=== PATIENT | male | born 1990 | race Caucasian/White ===

== ENCOUNTER 2016-08-06 18:10 | Emergency (ER) | payer BC ==
[2016-08-06] MEDS ORDERED: SODIUM CHLORIDE 0.9% 1,000 ML IV STA (18:36)
[2016-08-06] MEDS ORDERED: KETOROLAC 30 MG/ML 1 ML VIAL IVP STA (18:36)
--- NOTE | 2016-08-06 18:39 | ED ---
Abdominal Pain HPI - General Chief Complaint: Abdominal Pain Stated Complaint: upper side pain Time Seen by Provider: 08/06/16 18:29 Source: patient, RN notes reviewed Mode of arrival: ambulatory Limitations: no limitations - History of Present Illness Initial Comments: 26-year-old male presents to the emergency department with a chief complaint of left upper quadrant abdominal pain. Patient states that he is having this pain since . Patient states any movement make the pain worse. Patient states he rested just has a dull type pain. Patient states that the nausea without vomiting. Patient denies any history of the pain in the past. Patient denies any injury. Patient states that he was concerned due to his continued pains without that he should be evaluated.Patient denies any recent fever, chills, shortness of breath, chest pain, back pain, nausea vomiting, numbness or tingling, dysuria or hematuria, constipation or diarrhea, headaches or visual changes, or any other current symptoms. - Related Data Home Medications Medication Instructions Recorded Confirmed Dextroamphetamine/Amphetamine 30 mg PO BID 11/10/14 08/06/16 [Adderall] buPROPion XL [Wellbutrin Xl] 150 mg PO DAILY 08/06/16 08/06/16 Allergies Allergy/AdvReac Type Severity Reaction Status Date / Time No Known Allergies Allergy Verified 08/06/16 18:58 Review of Systems ROS Statement: Those systems with pertinent positive or pertinent negative responses have been documented in the HPI. ROS Other: All systems not noted in ROS Statement are negative. Past Medical History Past Medical History: No Reported History History of Any Multi-Drug Resistant Organisms: None Reported Past Surgical History: No Surgical Hx Reported Past Psychological History: No Psychological Hx Reported Smoking Status: Never smoker Past Alcohol Use History: Occasional Past Drug Use History: None Reported General Exam - General Exam Comments Initial Comments: General: The patient is awake and alert, in no distress, and does not appear acutely ill. Eye: Pupils are equal, round/ extra-ocular movements are intact; there is normal conjunctiva bilaterally. No signs of icterus. Ears, nose, mouth and throat: There are moist mucous membranes/ Neck: The neck is supple, there is no tenderness/ Cardiovascular: There is a regular rate and rhythm. No murmur, rub or gallop is appreciated. Respiratory: Lungs are clear to auscultation, respirations are non-labored, breath sounds are equal. No wheezes, stridor, rales, or rhonchi. Gastrointestinal: Soft, non-distended, non-tender abdomen without masses or organomegaly noted. There is no rebound or guarding present. No CVA tenderness. Bowel sounds are unremarkable. Back: There is no tenderness to palpation in the midline. There is no obvious deformity. No rashes noted. Musculoskeletal: Normal ROM, no tenderness, There is no pedal edema. There is no calf tenderness or swelling. Sensation intact. Pulses equal bilaterally 2+. Neurological: CN II-XII intact, There are no obvious motor or sensory deficits. Coordination appears grossly intact. Speech is normal. Skin: Skin is warm and dry and no rashes or lesions are noted. Psychiatric: Cooperative, appropriate mood & affect, normal judgment. Limitations: no limitations Course Vital Signs 08/06/16 18:20 Temperature 97.7 F Pulse Rate 73 Respiratory 20 Rate Blood Pressure 142/67 O2 Sat by Pulse 98 Oximetry - Reevaluation(s) Reevaluation #1: 08/06/16 20:18 Patient's abdomen continues to be soft and nontender. Medical Decision Making - Medical Decision Making 26-year-old male presents emergency Department chief complaint of left upper quadrant abdominal pain. This lab work was reviewed and does not show any acute process. At this time we did discuss other etiologies for this. Discussed watch for parameters. We discussed return parameters and follow-up. We discussed all the patient's his questions. He stated he understood and agreed with plan. Certainly will be discharged home. - Lab Data Result diagrams: 08/06/16 19:23 08/06/16 19:23 Lab Results 08/06/16 08/06/16 08/06/16 Range/Units 19:23 19:23 20:01 WBC 9.6 (3.8-10.6) k/uL RBC 5.29 (4.30-5.90) m/uL Hgb 15.5 (13.0-17.5) gm/dL Hct 43.0 (39.0-53.0) % MCV 81.2 (80.0-100.0) fL MCH 29.2 (25.0-35.0) pg MCHC 35.9 (31.0-37.0) g/dL RDW 13.2 (11.5-15.5) % Plt Count 228 (150-450) k/uL Neutrophils % 71 % Lymphocytes % 18 % Monocytes % 6 % Eosinophils % 2 % Basophils % 1 % Neutrophils # 6.8 (1.3-7.7) k/uL Lymphocytes # 1.8 (1.0-4.8) k/uL Monocytes # 0.6 (0-1.0) k/uL Eosinophils # 0.2 (0-0.7) k/uL Basophils # 0.1 (0-0.2) k/uL Sodium 140 (137-145) mmol/L Potassium 4.1 (3.5-5.1) mmol/L Chloride 104 (98-107) mmol/L Carbon Dioxide 26 (22-30) mmol/L Anion Gap 10 mmol/L BUN 13 (9-20) mg/dL Creatinine 0.78 (0.66-1.25) mg/dL Est GFR (MDRD) Af Amer >60 (>60 ml/min/1.73 sqM) Est GFR (MDRD) Non-Af >60 (>60 ml/min/1.73 sqM) Glucose 93 (74-99) mg/dL Calcium 9.5 (8.4-10.2) mg/dL Total Bilirubin 0.6 (0.2-1.3) mg/dL AST 26 (17-59) U/L ALT 43 (21-72) U/L Alkaline Phosphatase 60 (38-126) U/L Total Protein 7.2 (6.3-8.2) g/dL Albumin 4.1 (3.5-5.0) g/dL Amylase 56 (30-110) U/L Lipase 69 (23-300) U/L Urine Color Yellow Urine Appearance Clear (Clear) Urine pH 5.5 (5.0-8.0) Ur Specific [place] 1.024 (1.001-1.035) Urine Protein Negative (Negative) Urine Glucose (UA) Negative (Negative) Urine Ketones Negative (Negative) Urine Blood Negative (Negative) Urine Nitrite Negative (Negative) Urine Bilirubin Negative (Negative) Urine Urobilinogen <2.0 (<2.0) mg/dL Ur Leukocyte Esterase Negative (Negative) - Radiology Data Radiology results: report reviewed, image reviewed Disposition Clinical Impression: Abdominal pain, left upper quadrant Disposition: HOME SELF-CARE Condition: Stable Instructions: Abdominal Pain (ED) Additional Instructions: Please use medication as discussed. Please follow up with family doctor if symptoms have not improved over the next two days. Please return to the emergency room if your symptoms increase or worsen or for any other concerns. Referrals: Marium Agarwal MD [Primary Care Provider] - 1-2 days Time of Disposition: 20:18
--- NOTE | 2016-08-06 19:09 | XR ---
EXAMINATION TYPE: XR abdomen 2V DATE OF EXAM: 08/06/2016 6:46 PM COMPARISON: NONE HISTORY: Pain for a few weeks TECHNIQUE: 3 views FINDINGS: There is no sign of intestinal obstruction or pneumoperitoneum. Fecal pattern is normal. Th ere is no sign of a mass. There are no pathologic calcifications over the kidneys. IMPRESSION: Nonacute abdomen.
[2016-08-06 19:34] LABS: Basophils # (A) 0.1 k/uL (0-0.2); Basophils % (A) 1 %; CH 29.6; CHCM 36.5; Eosinophils # (A) 0.2 k/uL (0-0.7); Eosinophils % (A) 2 %; HDW 3.01; HGB 15.5 gm/dL (13.0-17.5); Luc # (Auto) 0.19; Luc % (Auto) 2; Lymphocytes # (A) 1.8 k/uL (1.0-4.8); Lymphocytes % (A) 18 %; MCH 29.2 pg (25.0-35.0); MCHC 35.9 g/dL (31.0-37.0); MCV 81.2 fL (80.0-100.0); Mean Platelet Volume 7.5; Monocytes # (A) 0.6 k/uL (0-1.0); Monocytes % (A) 6 %; Neutrophils # (A) 6.8 k/uL (1.3-7.7); Neutrophils % (A) 71 %; RBC 5.29 m/uL (4.30-5.90); RDW 13.2 % (11.5-15.5); WBC 9.6 k/uL (3.8-10.6); WBC (Perox) 9.16
[2016-08-06 19:44] LABS: ALT 43 U/L (21-72); AST 26 U/L (17-59); Alkaline Phosphatase 60 U/L (38-126); Amylase 56 U/L (30-110); Anion Gap 10 mmol/L; Blood Urea Nitrogen 13 mg/dL (9-20); Calcium 9.5 mg/dL (8.4-10.2); Carbon Dioxide 26 mmol/L (22-30); Chloride 104 mmol/L (98-107); Glucose 93 mg/dL (74-99); Non-African American GFR(MDRD) >60 (>60 ml/min/1.73 sqM); Potassium 4.1 mmol/L (3.5-5.1); Sodium 140 mmol/L (137-145); Total Bilirubin 0.6 mg/dL (0.2-1.3); Total Protein 7.2 g/dL (6.3-8.2)
[2016-08-06 20:08] LABS: Appearance,Urine Clear (Clear); Bilirubin,Urine Negative (Negative); Glucose,Urine (UA) Negative (Negative); Ketones,Urine Negative (Negative); Leukocyte Esterase,Urine Negative (Negative); Nitrite,Urine Negative (Negative); PH, Urine 5.5 (5.0-8.0); Protein,Urine Negative (Negative); Specific Gravity,Urine 1.024 (1.001-1.035); UA Billing (MACRO vs. MICRO) CHEM; Urobilinogen,Urine <2.0 mg/dL (<2.0)
[2016-08-06 21:52] VITALS: BP 138/78; PULSE 84; RESP 18; TEMP 97.9
== END 2016-08-06 21:52 | disposition home or self-care (01) ==
LOC: EC 18:10
DX: R10.12 Left upper quadrant pain (principal); R11.0 Nausea; Z79.899 Other long term (current) drug therapy
CPT/HCPCS: 36415; 80053; 82150; 83690; 85025; 81003; 74020; 99284; 96374; 96361 ×2; J1885

== ENCOUNTER 2018-01-07 13:02 | Emergency (ER) | payer BC ==
[2018-01-07] MEDS ORDERED: MAG HYDROX/AL HYDROX/SIMETH 30 ML, HYOSCYAMINE ELIXIR 10 ML, CIMETIDINE HCL 300 MG, LID... PO STA ×4 (14:11)
[2018-01-07] MEDS ORDERED: KETOROLAC 30 MG/ML 1 ML VIAL IVP STA (14:11)
[2018-01-07 14:38] LABS: ALT 58 U/L (21-72); AST 35 U/L (17-59); Albumin 3.6 g/dL (3.5-5.0); Alkaline Phosphatase 46 U/L (38-126); Amylase 44 U/L (30-110); Anion Gap 9 mmol/L; Blood Urea Nitrogen 12 mg/dL (9-20); Calcium 8.7 mg/dL (8.4-10.2); Carbon Dioxide 25 mmol/L (22-30); Chloride 108 mmol/L (98-107); Glucose 94 mg/dL (74-99); Lipase 41 U/L (23-300); Potassium 4.2 mmol/L (3.5-5.1); Sodium 142 mmol/L (137-145); Total Bilirubin 0.5 mg/dL (0.2-1.3); Total Protein 6.7 g/dL (6.3-8.2)
[2018-01-07 14:38] LABS: Appearance,Urine Clear (Clear); Bilirubin,Urine Negative (Negative); Blood,Urine Negative (Negative); Color,Urine Yellow; Glucose,Urine (UA) Negative (Negative); Ketones,Urine Negative (Negative); Leukocyte Esterase,Urine Negative (Negative); Nitrite,Urine Negative (Negative); PH, Urine 5.5 (5.0-8.0); Protein,Urine Trace (Negative); Specific Gravity,Urine 1.026 (1.001-1.035); Urobilinogen,Urine <2.0 mg/dL (<2.0)
[2018-01-07 14:40] LABS: Basophils # (A) 0.1 k/uL (0-0.2); Basophils % (A) 1 %; Eosinophils # (A) 0.2 k/uL (0-0.7); Eosinophils % (A) 2 %; HCT 43.7 % (39.0-53.0); HGB 14.5 gm/dL (13.0-17.5); Lymphocytes # (A) 1.6 k/uL (1.0-4.8); Lymphocytes % (A) 19 %; MCH 27.5 pg (25.0-35.0); MCHC 33.3 g/dL (31.0-37.0); MCV 82.8 fL (80.0-100.0); Mean Platelet Volume 7.2; Monocytes # (A) 0.6 k/uL (0-1.0); Monocytes % (A) 7 %; Neutrophils # (A) 5.6 k/uL (1.3-7.7); Neutrophils % (A) 69 %; Platelet Count 235 k/uL (150-450); RBC 5.27 m/uL (4.30-5.90); RDW 13.5 % (11.5-15.5)
--- NOTE | 2018-01-07 15:35 | ED ---
General Adult HPI - General Chief complaint: Abdominal Pain Stated complaint: ABDOMINAL PAIN Time Seen by Provider: 01/07/18 13:59 Source: patient, RN notes reviewed Mode of arrival: ambulatory Limitations: no limitations - History of Present Illness Initial comments: 27-year-old male presents to the emergency department for a chief complaint of epigastric pain 4 days. Patient states the pain is constant. He describes as a sharp pain in his upper abdomen. Patient states the pain is worsened when he sits up and crunches. Patient denies any lower abdominal pain. Patient denies any nausea or vomiting. Patient does admit to diarrhea over the past few days. Patient states he is able to eat and drink without difficulty. Patient denies any lower abdominal pain. Patient denies any fevers or chills at home.Patient has no other complaints at this time including shortness of breath , chest pain, nausea or vomiting, headache, or visual changes. - Related Data Home Medications Medication Instructions Recorded Confirmed Dextroamphetamine/Amphetamine 30 mg PO BID 11/10/14 01/07/18 [Adderall] Previous Rx's Medication Instructions Recorded Pantoprazole Sodium [Protonix] 40 mg PO DAILY 14 Days tablet. 01/07/18 Allergies Allergy/AdvReac Type Severity Reaction Status Date / Time No Known Allergies Allergy Verified 01/07/18 14:23 Review of Systems ROS Statement: Those systems with pertinent positive or pertinent negative responses have been documented in the HPI. ROS Other: All systems not noted in ROS Statement are negative. Past Medical History Past Medical History: No Reported History History of Any Multi-Drug Resistant Organisms: None Reported Past Surgical History: No Surgical Hx Reported Past Psychological History: No Psychological Hx Reported Smoking Status: Never smoker Past Alcohol Use History: Occasional Past Drug Use History: None Reported General Exam Limitations: no limitations General appearance: alert, in no apparent distress Head exam: Present: atraumatic, normocephalic, normal inspection Eye exam: Present: normal appearance. Absent: scleral icterus, conjunctival injection ENT exam: Present: normal exam, mucous membranes moist Neck exam: Present: normal inspection, full ROM. Absent: tenderness, meningismus, lymphadenopathy Respiratory exam: Present: normal lung sounds bilaterally. Absent: respiratory distress, wheezes, rales, rhonchi, stridor Cardiovascular Exam: Present: regular rate, normal rhythm, normal heart sounds. Absent: systolic murmur, diastolic murmur, rubs, gallop, clicks GI/Abdominal exam: Present: soft, tenderness (Epigastric tenderness. Minimal right upper quadrant and left upper quadrant tenderness. No right lower quadrant or left lower quadrant tenderness. Pain is worse when pressing rather than releasing pressure.), normal bowel sounds, other (Negative Esqueda sign. Negative obturator and iliopsoas signs). Absent: distended, guarding, rebound, rigid Back exam: Absent: CVA tenderness (R), CVA tenderness (L) Neurological exam: Present: alert, oriented X3, CN II-XII intact Psychiatric exam: Present: normal affect, normal mood Course Vital Signs 01/07/18 01/07/18 13:28 15:46 Temperature 98.2 F 98.7 F Pulse Rate 60 100 Respiratory 20 18 Rate Blood Pressure 146/83 139/74 O2 Sat by Pulse 98 98 Oximetry Medical Decision Making - Medical Decision Making 27-year-old male presents to the emergency department for a chief complaint of epigastric pain 4 days. Patient does have a history of GERD. Patient states the pain is worsened crutches. He admits to diarrhea but denies any nausea or vomiting. Patient is drinking water in the emergency department and able to tolerate oral solids and liquids without any difficulty. No fevers or chills at home. Vitals within normal limits here. On exam patient has epigastric tenderness. There is mild right and left upper quadrant tenderness. Negative Esqueda sign. No right or left lower quadrant tenderness. Negative obturator and iliopsoas signs. CBC and CMP unremarkable. Urine shows no evidence of infection. KUB shows no evident bowel obstruction or pneumoperitoneum. Nonobstructive bowel gas pattern. Patient is feeling much better after receiving GI cocktail and Toradol. Discussed following up with GI for possible scope and to take Protonix. He will also follow-up with primary care in the next day or 2. He will return to the emergency department if he has any worsening symptoms that she is well aware of. - Lab Data Result diagrams: 01/07/18 14:15 01/07/18 14:15 Lab Results 01/07/18 01/07/18 01/07/18 Range/Units 14:15 14:15 14:29 WBC 8.0 (3.8-10.6) k/uL RBC 5.27 (4.30-5.90) m/uL Hgb 14.5 (13.0-17.5) gm/dL Hct 43.7 (39.0-53.0) % MCV 82.8 (80.0-100.0) fL MCH 27.5 (25.0-35.0) pg MCHC 33.3 (31.0-37.0) g/dL RDW 13.5 (11.5-15.5) % Plt Count 235 (150-450) k/uL Neutrophils % 69 % Lymphocytes % 19 % Monocytes % 7 % Eosinophils % 2 % Basophils % 1 % Neutrophils # 5.6 (1.3-7.7) k/uL Lymphocytes # 1.6 (1.0-4.8) k/uL Monocytes # 0.6 (0-1.0) k/uL Eosinophils # 0.2 (0-0.7) k/uL Basophils # 0.1 (0-0.2) k/uL Sodium 142 (137-145) mmol/L Potassium 4.2 (3.5-5.1) mmol/L Chloride 108 H (98-107) mmol/L Carbon Dioxide 25 (22-30) mmol/L Anion Gap 9 mmol/L BUN 12 (9-20) mg/dL Creatinine 1.11 (0.66-1.25) mg/dL Est GFR (CKD-EPI)AfAm >90 (>60 ml/min/1.73 sqM) Est GFR (CKD-EPI)NonAf >90 (>60 ml/min/1.73 sqM) Glucose 94 (74-99) mg/dL Calcium 8.7 (8.4-10.2) mg/dL Total Bilirubin 0.5 (0.2-1.3) mg/dL AST 35 (17-59) U/L ALT 58 (21-72) U/L Alkaline Phosphatase 46 (38-126) U/L Total Protein 6.7 (6.3-8.2) g/dL Albumin 3.6 (3.5-5.0) g/dL Amylase 44 (30-110) U/L Lipase 41 (23-300) U/L Urine Color Yellow Urine Appearance Clear (Clear) Urine pH 5.5 (5.0-8.0) Ur Specific [place] 1.026 (1.001-1.035) Urine Protein Trace H (Negative) Urine Glucose (UA) Negative (Negative) Urine Ketones Negative (Negative) Urine Blood Negative (Negative) Urine Nitrite Negative (Negative) Urine Bilirubin Negative (Negative) Urine Urobilinogen <2.0 (<2.0) mg/dL Ur Leukocyte Esterase Negative (Negative) Disposition Clinical Impression: Abdominal pain Disposition: HOME SELF-CARE Condition: Good Instructions: Gastritis (ED), Abdominal Pain (ED) Additional Instructions: Please follow up with GI and primary care. Please return to the emergency department if you have any worsening symptoms. Prescriptions: Pantoprazole Sodium [Protonix] 40 mg PO DAILY 14 Days tablet.dr Is patient prescribed a controlled substance at d/c from ED?: No Referrals: Marium Agarwal MD [Primary Care Provider] - 1-2 days Angela Hines MD [STAFF PHYSICIAN] - 1-2 days Time of Disposition: 16:10
--- NOTE | 2018-01-07 16:00 | XR ---
Abdomen HISTORY: Pain Frontal view of the abdomen on 2 images Lung bases are clear. There is no evident bowel obstruction or pneumoperitoneum. No pathologic calcif ication seen. There is a spinal curvature. IMPRESSION: Nonobstructive bowel gas pattern.
[2018-01-07 16:29] VITALS: BP 129/67; PULSE 54; RESP 17; TEMP 98.3
== END 2018-01-07 16:32 | disposition home or self-care (01) ==
LOC: EC 13:02
DX: R10.13 Epigastric pain (principal); R10.11 Right upper quadrant pain; R10.12 Left upper quadrant pain; R19.7 Diarrhea, unspecified; K21.9 Gastro-esophageal reflux disease without esophagitis; Z79.899 Other long term (current) drug therapy
CPT/HCPCS: 99284; 96374; 36415; 80053; 82150; 83690; 85025; 81003; 74018; J1885

== ENCOUNTER 2019-10-24 21:57 | Emergency (ER) | payer BC, OTHER ==
[2019-10-24] MEDS ORDERED: SODIUM CHLORIDE 0.9% 1,000 ML IV STA (22:04)
[2019-10-24] MEDS ORDERED: fentaNYL (PF) 50 MCG/ML 2 ML AMP IVP STA (22:06)
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
[2019-10-24 22:09] VITALS: BP 140/87; PULSE 96; TEMP 98.7
[2019-10-24 22:11] LABS: Glucose,Whole Blood 136 mg/dL (75-99)
[2019-10-24 22:22] LABS: Basophils # (A) 0.1 k/uL (0-0.2); Basophils % (A) 1 %; Eosinophils # (A) 0.2 k/uL (0-0.7); Eosinophils % (A) 2 %; HCT 44.4 % (39.0-53.0); HGB 15.3 gm/dL (13.0-17.5); Lymphocytes # (A) 2.8 k/uL (1.0-4.8); Lymphocytes % (A) 31 %; MCH 28.6 pg (25.0-35.0); MCHC 34.4 g/dL (31.0-37.0); MCV 83.1 fL (80.0-100.0); Mean Platelet Volume 7.3; Monocytes # (A) 0.5 k/uL (0-1.0); Monocytes % (A) 5 %; Neutrophils # (A) 5.5 k/uL (1.3-7.7); Neutrophils % (A) 59 %; Platelet Count 248 k/uL (150-450); RBC 5.35 m/uL (4.30-5.90); RDW 13.2 % (11.5-15.5); WBC 9.2 k/uL (3.8-10.6)
[2019-10-24 22:30] LABS: Partial Thromboplastin Time 22.8 sec (22.0-30.0)
[2019-10-24 22:31] LABS: ALT 49 U/L (4-49); AST 47 U/L (17-59); African American GFR (CKD) >90 (>60 ml/min/1.73 sqM); Albumin 4.3 g/dL (3.5-5.0); Alcohol <10 mg/dL; Alkaline Phosphatase 63 U/L (38-126); Anion Gap 10 mmol/L; Blood Urea Nitrogen 15 mg/dL (9-20); Calcium 9.3 mg/dL (8.4-10.2); Carbon Dioxide 23 mmol/L (22-30); Chloride 107 mmol/L (98-107); Glucose 130 mg/dL (74-99); Non-African American GFR(CKD) >90 (>60 ml/min/1.73 sqM); Sodium 140 mmol/L (137-145); Total Bilirubin 0.7 mg/dL (0.2-1.3); Total Protein 7.5 g/dL (6.3-8.2)
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
[2019-10-24] MEDS ORDERED: MORPHINE SULFATE 4 MG/ML SYRINGE IVP STA (23:25)
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
[2019-10-25 00:36] VITALS: RESP 20
[2019-10-25] MEDS ORDERED: ACET/COD 300 MG/30 MG STARTER PACK 6 TAB BTL PO STA (00:48)
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
== END 2019-10-25 02:00 | disposition home or self-care (01) ==
LOC: EC 21:57
DX: S40.012A Contusion of left shoulder, initial encounter (principal); R07.1 Chest pain on breathing; R00.1 Bradycardia, unspecified; V86.55XA Driver of 3- or 4- wheeled all-terrain vehicle (ATV) injured in nontraffic accident, initial encounter; Y92.410 Unspecified street and highway as the place of occurrence of the external cause
CPT/HCPCS: 36415; 93005; 86900; 86901; 80053; 84484; 85025; 85610; 85730; 86850; 80320; 72170; 73030; 73000; 71045; 72125; 70450; 71260; 74177; 99284; 96374; 96375; 96361 ×2; J2270; J3010; Q9967

== ENCOUNTER → 2020-08-17 | Outpatient (CLI) | payer OTHER | END | disposition home or self-care (01) | LOC: LABWHC1 15:40 | PROVIDERS: ATTEND Family Medicine | DX: Z20.822 Contact with and (suspected) exposure to COVID-19 (principal) | CPT/HCPCS: U0003; C9803 ==

== ENCOUNTER 2022-12-17 07:34 | Emergency (ER) | payer OTHER ==
[2022-12-17] MEDS ORDERED: ONDANSETRON 4 MG/2 ML VIAL IVP STA (07:51)
[2022-12-17] MEDS ORDERED: SODIUM CHLORIDE 0.9% 2,000 ML IV STA (07:51)
--- NOTE | 2022-12-17 07:53 | ED ---
Abdominal Pain HPI - General Chief Complaint: Abdominal Pain Stated Complaint: Abd Pain, N/V Time Seen by Provider: 12/17/22 07:44 Source: patient, RN notes reviewed Mode of arrival: ambulatory Limitations: no limitations - History of Present Illness Initial Comments: This a 32-year-old male presents emergency department to complaint lower abdominal pain. Patient states started on Saturday has worsened. He states it does wax and wane but never resolves. Patient does admit to some nausea and vomiting. Patient denies any dysuria hematuria no history kidney stones. He states she's had no prior abdominal surgeries. Patient does states pain is wor se in lower to right-sided his abdomen. He does have mild diarrhea. Denies melanotic stools. - Related Data Home Medications Medication Instructions Recorded Confirmed Dextroamphetamine/Amphetamine 30 mg PO BID 11/10/14 01/07/18 [Adderall] Previous Rx's Medication Instructions Recorded Pantoprazole Sodium [Protonix] 40 mg PO DAILY 14 Days tablet. 01/07/18 methocarbamoL [Robaxin-750] 750 mg PO TID PRN #24 tablet 10/25/19 Amoxic-Pot Clav 875-125Mg 1 tab PO Q12HR #20 tab 12/17/22 [Augmentin 875-125] Ondansetron Odt [Zofran Odt] 4 mg PO Q8HR PRN #10 tab 12/17/22 Allergies Allergy/AdvReac Type Severity Reaction Status Date / Time No Known Allergies Allergy Verified 12/17/22 07:42 Review of Systems ROS Statement: Those systems with pertinent positive or pertinent negative responses have been documented in the HPI. ROS Other: All systems not noted in ROS Statement are negative. Past Medical History Past Medical History: No Reported History History of Any Multi-Drug Resistant Organisms: None Reported Past Surgical History: No Surgical Hx Reported Past Psychological History: No Psychological Hx Reported Smoking Status: Never smoker Past Alcohol Use History: Occasional Past Drug Use History: None Reported General Exam Limitations: no limitations General appearance: alert, in no apparent distress Head exam: Present: atraumatic, normocephalic, normal inspection ENT exam: Present: normal exam, mucous membranes moist Neck exam: Present: normal inspection, full ROM. Absent: tenderness, meningismus, lymphadenopathy Respiratory exam: Present: normal lung sounds bilaterally. Absent: respiratory distress, wheezes, rales, rhonchi, stridor Cardiovascular Exam: Present: regular rate, normal rhythm, normal heart sounds. Absent: systolic murmur, diastolic murmur, rubs, gallop, clicks GI/Abdominal exam: Present: soft, tenderness, normal bowel sounds. Absent: distended, guarding, rebound, rigid Back exam: Absent: CVA tenderness (R), CVA tenderness (L) Neurological exam: Present: alert Course Vital Signs 12/17/22 12/17/22 07:40 09:21 Temperature 98.8 F Pulse Rate 78 71 Respiratory 18 20 Rate Blood Pressure 159/90 131/86 O2 Sat by Pulse 98 96 Oximetry Medical Decision Making - Medical Decision Making Was pt. sent in by a medical professional or institution (, PA, MARINE STEAM [employer]TER, urgent care, hospital, or [facility]...) When possible be specific @ -No Did you speak to anyone other than the patient for history (EMS, parent, family, police, friend...)? What history was obtained from this source @ -No Did you review nursing and triage notes (agree or disagree)? Why? @ -I reviewed and agree with nursing and triage notes Were old charts reviewed (outside hosp., previous admission, EMS record, old EKG, old radiological studies, urgent care reports/EKG's, [facility] records)? Report findings @ -No old charts were reviewed Differential Diagnosis (chest pain, altered mental status, abdominal pain women, abdominal pain men, vaginal bleeding, weakness, fever, dyspnea, syncope, headache, dizziness, GI bleed, back pain, seizure, CVA, palpatations, mental health, musculoskeletal)? @ -nDifferential Abdominal Pain Men: Appendicitis, cholecystitis, diverticulosis, ischemic bowel, pancreatitis, hepatitis, UTI, gastroenteritis, AAA, incarcerated hernia, bowel obstruction, constipation, inflammatory bowel, hepatitis, peptic ulcer disease, splenic infarction, perforated viscus, testicular torsion, this is not meant to be an all-inclusive listable EKG interpreted by me (3pts min.). @ -None X-rays interpreted by me (1pt min.). @ -None done CT interpreted by me (1pt min.). @ -CT the abdomen and pelvis shows evidence of acute infectious colitis. Appendix is normal no other acute findings U/S interpreted by me (1pt. min.). @ -None done What testing was considered but not performed or refused? (CT, X-rays, U/S, labs)? Why? @ -None What meds were considered but not given or refused? Why? @ -None Did you discuss the management of the patient with other professionals (professionals i.e. , PA, MARINE [employer]TER, lab, RT, psych nurse, social welfare research worker, motor operator, teacher, intelligence support officer, shelter case manager)? Give summary @ -No Was smoking cessation discussed for >3mins.? @ -No Was critical care preformed (if so, how long)? @ -No Were there social determinants of health that impacted care today? How? (Homelessness, low income, unemployed, alcoholism, drug addiction, transportation, low edu. Level, literacy, decrease access to med. care, snf, rehab)? @ -No Was there de-escalation of care discussed even if they declined (Discuss DNR or withdrawal of care, Hospice)? DNR status @ -No What co-morbidities impacted this encounter? (DM, HTN, Smoking, COPD, CAD, Cancer, CVA, ARF, Chemo, Hep., AIDS, mental health diagnosis, sleep apnea, morbid obesity)? @ -None Was patient admitted / discharged? Hospital course, mention meds given and route, prescriptions, significant lab abnormalities, going to OR and other pertinent info. @ -Discharge patient lab for studies reviewed, CT shows evidence of infectious sigmoid colitis,Patient states emergency medicine for close follow-up return parameters were discussed. Undiagnosed new problem with uncertain prognosis? @ -No Drug Therapy requiring intensive monitoring for toxicity (Heparin, Nitro, Insulin, Cardizem)? @ -No Were any procedures done? @ -No Diagnosis/symptom? @ -Colitis Acute, or Chronic, or Acute on Chronic? @ -Acute Uncomplicated (without systemic symptoms) or Complicated (systemic symptoms)? @ -Uncomplicated Side effects of treatment? @ -No Exacerbation, Progression, or Severe Exacerbation? @ -No Poses a threat to life or bodily function? How? (Chest pain, [place], VA, pneumonia, PE, COPD, DKA, ARF, appy, cholecystitis, CVA, Diverticulitis, Homicidal, Suicidal, threat to staff... and all critical care pts) @ -No - Lab Data Result diagrams: 12/17/22 08:03 12/17/22 08:03 Lab Results 12/17/22 12/17/22 12/17/22 Range/Units 08:03 08:03 08:03 WBC 14.4 H (3.8-10.6) k/uL RBC 5.06 (4.30-5.90) m/uL Hgb 14.8 (13.0-17.5) gm/dL Hct 42.1 (39.0-53.0) % MCV 83.2 (80.0-100.0) fL MCH 29.2 (25.0-35.0) pg MCHC 35.2 (31.0-37.0) g/dL RDW 13.5 (11.5-15.5) % Plt Count 194 (150-450) k/uL MPV 8.3 Neutrophils % 82 % Lymphocytes % 11 % Monocytes % 5 % Eosinophils % 1 % Basophils % 0 % Neutrophils # 11.8 H (1.3-7.7) k/uL Lymphocytes # 1.5 (1.0-4.8) k/uL Monocytes # 0.8 (0-1.0) k/uL Eosinophils # 0.1 (0-0.7) k/uL Basophils # 0.1 (0-0.2) k/uL Sodium 137 (137-145) mmol/L Potassium 3.8 (3.5-5.1) mmol/L Chloride 103 (98-107) mmol/L Carbon Dioxide 26 (22-30) mmol/L Anion Gap 8 mmol/L BUN 11 (9-20) mg/dL Creatinine 0.69 (0.66-1.25) mg/dL Est GFR (CKD-EPI)AfAm >90 (>60 ml/min/1.73 sqM) Est GFR (CKD-EPI)NonAf >90 (>60 ml/min/1.73 sqM) Glucose 115 H (74-99) mg/dL Plasma Lactic Acid Bernardo (0.7-2.0) mmol/L Calcium 8.8 (8.4-10.2) mg/dL Total Bilirubin 1.0 (0.2-1.3) mg/dL AST 26 (17-59) U/L ALT 27 (4-49) U/L Alkaline Phosphatase 57 (38-126) U/L Total Protein 7.0 (6.3-8.2) g/dL Albumin 3.8 (3.5-5.0) g/dL Lipase 57 (23-300) U/L Urine Color Light Red Urine Appearance Clear (Clear) Urine pH 5.5 (5.0-8.0) Ur Specific [place] 1.028 (1.001-1.035) Urine Protein Trace H (Negative) Urine Glucose (UA) Negative (Negative) Urine Ketones Negative (Negative) Urine Blood Negative (Negative) Urine Nitrite Negative (Negative) Urine Bilirubin Negative (Negative) Urine Urobilinogen <2.0 (<2.0) mg/dL Ur Leukocyte Esterase Negative (Negative) 12/17/22 Range/Units 08:14 WBC (3.8-10.6) k/uL RBC (4.30-5.90) m/uL Hgb (13.0-17.5) gm/dL Hct (39.0-53.0) % MCV (80.0-100.0) fL MCH (25.0-35.0) pg MCHC (31.0-37.0) g/dL RDW (11.5-15.5) % Plt Count (150-450) k/uL MPV Neutrophils % % Lymphocytes % % Monocytes % % Eosinophils % % Basophils % % Neutrophils # (1.3-7.7) k/uL Lymphocytes # (1.0-4.8) k/uL Monocytes # (0-1.0) k/uL Eosinophils # (0-0.7) k/uL Basophils # (0-0.2) k/uL Sodium (137-145) mmol/L Potassium (3.5-5.1) mmol/L Chloride (98-107) mmol/L Carbon Dioxide (22-30) mmol/L Anion Gap mmol/L BUN (9-20) mg/dL Creatinine (0.66-1.25) mg/dL Est GFR (CKD-EPI)AfAm (>60 ml/min/1.73 sqM) Est GFR (CKD-EPI)NonAf (>60 ml/min/1.73 sqM) Glucose (74-99) mg/dL Plasma Lactic Acid Bernardo 1.6 (0.7-2.0) mmol/L Calcium (8.4-10.2) mg/dL Total Bilirubin (0.2-1.3) mg/dL AST (17-59) U/L ALT (4-49) U/L Alkaline Phosphatase (38-126) U/L Total Protein (6.3-8.2) g/dL Albumin (3.5-5.0) g/dL Lipase (23-300) U/L Urine Color Urine Appearance (Clear) Urine pH (5.0-8.0) Ur Specific [place] (1.001-1.035) Urine Protein (Negative) Urine Glucose (UA) (Negative) Urine Ketones (Negative) Urine Blood (Negative) Urine Nitrite (Negative) Urine Bilirubin (Negative) Urine Urobilinogen (<2.0) mg/dL Ur Leukocyte Esterase (Negative) Disposition Clinical Impression: Infectious colitis Disposition: HOME SELF-CARE Condition: Stable Instructions (If sedation given, give patient instructions): Colitis (ED) Additional Instructions: Please return to the Emergency Department if symptoms worsen or any other concerns. Prescriptions: Amoxic-Pot Clav 875-125Mg [Augmentin 875-125] 1 tab PO Q12HR #20 tab Ondansetron Odt [Zofran Odt] 4 mg PO Q8HR PRN #10 tab PRN Reason: Nausea Is patient prescribed a controlled substance at d/c from ED?: No Referrals: Marium Agarwal MD [Primary Care Provider] - 1-2 days Time of Disposition: 09:55
[2022-12-17 08:22] LABS: Basophils # (A) 0.1 k/uL (0-0.2); Basophils % (A) 0 %; Eosinophils # (A) 0.1 k/uL (0-0.7); Eosinophils % (A) 1 %; HCT 42.1 % (39.0-53.0); HGB 14.8 gm/dL (13.0-17.5); Lymphocytes # (A) 1.5 k/uL (1.0-4.8); Lymphocytes % (A) 11 %; MCH 29.2 pg (25.0-35.0); MCHC 35.2 g/dL (31.0-37.0); MCV 83.2 fL (80.0-100.0); Mean Platelet Volume 8.3; Monocytes # (A) 0.8 k/uL (0-1.0); Monocytes % (A) 5 %; Neutrophils # (A) 11.8 k/uL (1.3-7.7); Neutrophils % (A) 82 %; Platelet Count 194 k/uL (150-450); RBC 5.06 m/uL (4.30-5.90); RDW 13.5 % (11.5-15.5); WBC 14.4 k/uL (3.8-10.6)
[2022-12-17 08:23] LABS: Appearance,Urine Clear (Clear); Bilirubin,Urine Negative (Negative); Blood,Urine Negative (Negative); Color,Urine Light Red; Glucose,Urine (UA) Negative (Negative); Ketones,Urine Negative (Negative); Leukocyte Esterase,Urine Negative (Negative); Nitrite,Urine Negative (Negative); PH, Urine 5.5 (5.0-8.0); Protein,Urine Trace (Negative); Specific Gravity,Urine 1.028 (1.001-1.035); Urobilinogen,Urine <2.0 mg/dL (<2.0)
[2022-12-17 08:36] LABS: ALT 27 U/L (4-49); AST 26 U/L (17-59); African American GFR (CKD) >90 (>60 ml/min/1.73 sqM); Albumin 3.8 g/dL (3.5-5.0); Alkaline Phosphatase 57 U/L (38-126); Anion Gap 8 mmol/L; Blood Urea Nitrogen 11 mg/dL (9-20); Calcium 8.8 mg/dL (8.4-10.2); Carbon Dioxide 26 mmol/L (22-30); Chloride 103 mmol/L (98-107); Glucose 115 mg/dL (74-99); Lipase 57 U/L (23-300); Non-African American GFR(CKD) >90 (>60 ml/min/1.73 sqM); Potassium 3.8 mmol/L (3.5-5.1); Sodium 137 mmol/L (137-145)
--- NOTE | 2022-12-17 09:38 | CT ---
EXAMINATION TYPE: CT abdomen pelvis w con CT DLP: 5335 mGycm, Automated exposure control for dose reduction was used. DATE OF EXAM: 12/17/2022 9:21 AM COMPARISON: CT chest abdomen pelvis 10/24/2019. CLINICAL INDICATION:Male, 32 years old with history of abdominal pain; Lower abdominal/pelvic pain, N ausea and vomiting TECHNIQUE: Standard CT of the abdomen and pelvis following the administration of 100 cc of Isovue 3 00 IV contrast material. Coronal and sagittal reformats were performed. FINDINGS: LOWER CHEST: Unremarkable ABDOMEN LIVER: Diffusely hypoattenuating parenchyma. GALLBLADDER AND BILE DUCTS: Unremarkable. PANCREAS: Unremarkable. SPLEEN: Unremarkable. ADRENAL GLANDS: Unremarkable. KIDNEYS AND URETERS: No evidence of hydronephrosis or renal calculus. The kidneys enhance symmetrical ly. Contrast is demonstrated within both collecting systems on the delayed phase. PELVIS BLADDER: Under distended, limiting evaluation. REPRODUCTIVE: Unremarkable. ABDOMEN & PELVIS STOMACH AND BOWEL: Stomach and duodenum are unremarkable. There is circumferential wall thickening wi th surrounding fat stranding involving the sigmoid colon. Inflammatory changes extend superiorly. No definitive pericolonic abscess. The appendix is within normal limits. No evidence of bowel obstructio n. No pneumatosis. PERITONEUM: No evidence of pneumoperitoneum. Trace free fluid in the pelvis. VASCULATURE: No evidence of aortic aneurysm. MUSCULOSKELETAL: No acute osseous abnormalities LYMPH NODES: No gross evidence for lymphadenopathy. SOFT TISSUE/ABDOMINAL WALL: Small fat filled umbilical hernia. IMPRESSION: 1. Acute nonspecific sigmoid colitis likely from an infectious/pulmonary process. Trace free fluid i n the pelvis. No definitive pericolonic abscess. 2. Hepatic steatosis.
[2022-12-17 10:35] VITALS: BP 118/67; PULSE 68; RESP 18; TEMP 98.3
== END 2022-12-17 10:36 | disposition home or self-care (01) ==
LOC: EC 07:34
DX: A09 Infectious gastroenteritis and colitis, unspecified (principal)
CPT/HCPCS: 36415; 80053; 83605; 83690; 85025; 81003; 74177; 99284; 96374; 96361 ×2; J2405; Q9967

== ENCOUNTER → 2024-07-15 | Outpatient (CLI) | payer BC ==
[2024-07-15 16:24] VITALS: BP 143/81; PULSE 81; RESP 16; TEMP 97.8
--- NOTE | 2024-07-15 16:46 | P.HPBAR ---
Bariatric H&P - History & Physicial H&P Date: 07/15/24 History & Physicial: Visit/CC: new Patient initial contact: Initial weight: 198.673 kg Initial weight in pounds: 438.00 Height: 5 ft 8.5 in Initial BMI: 65.6 Last weight: Current weight: 198.673 kg Current weight in pounds: Current BMI: [place] body weight (based on NIH guidelines): 71.36 kg Excess body weight loss: The patient is a 34 year-old M who presents for Bariatric Assessment. He has already lost 10 pounds in 2 weeks. Needs labs. He has sleep apnea. Brought and 2 kids. Has back, no hip, left knee, No ankle. Everyone in family. NO weigth loss surgery. Sleep apnea assessment. Past Medical History Past Medical History: No Reported History History of Any Multi-Drug Resistant Organisms: None Reported Past Surgical History: No Surgical Hx Reported Past Psychological History: ADD/ADHD Smoking Status: Never smoker Past Alcohol Use History: Occasional Past Drug Use History: None Reported - Past Family History Mother Family Medical History: Hypertension Surgical - Exam Vital Signs Temp Pulse Resp BP 97.8 F 81 16 143/81 07/15/24 16:11 07/15/24 16:11 07/15/24 16:11 07/15/24 16:11 Bariatric Checklist Checklist: Plan: Checklist: EGD: 1. Hiatal hernia: 2. H. Pylori: HgbA1c: Vitamin D: Smoking: Never smoker Primary care physician referral: Eden Agarwal Psychiatry clearance: Cardiology clearance: Sleep study: Diet journal: VTE risk score: VTE risk level: Rehab needs at discharge:
== END ==
LOC: BARWHC3 15:48
PROVIDERS: ATTEND Surgery Plastic and Reconstructive Surgery
DX: E66.01 Morbid (severe) obesity due to excess calories (principal); Z68.44 Body mass index [BMI] 60.0-69.9, adult
CPT/HCPCS: 99211

== ENCOUNTER → 2024-07-16 | Outpatient (CLI) | payer BC ==
[2024-07-16 17:04] LABS: INR 0.9 (<1.2); Partial Thromboplastin Time 25.8 sec (22.0-30.0); Prothrombin Time 10.5 sec (10.0-12.5)
[2024-07-16 18:36] LABS: HCT 44.7 % (39.6-50.0); HGB 15.3 g/dL (13.0-17.0); MCH 28.7 pg (27.0-32.0); MCHC 34.2 g/dL (32.0-37.0); MCV 83.7 FL (80.0-97.0); Mean Platelet Volume 10.1 FL (9.5-12.2); NRBC Per 100 WBC 0 X 10*3/uL (0.00-0.01); Platelet Count 244 X 10*3/uL (140-440); RBC 5.34 X 10*6/uL (4.40-5.60); RDW 13.2 % (11.5-14.5); WBC 8.31 X 10*3/uL (4.50-10.00)
[2024-07-16 19:33] LABS: % Iron Saturation 14.29 (15.00-50.00); ALT 39 U/L (10-49); AST 28 U/L (14-35); Albumin 4.2 g/dL (3.8-4.9); Albumin/Globulin Ratio 1.56 Ratio (1.60-3.17); Alkaline Phosphatase 70 U/L (41-126); BUN/Creat Ratio 20.88 Ratio (12.00-20.00); Blood Urea Nitrogen 16.7 mg/dL (9.0-27.0); Calcium 9.4 mg/dL (8.7-10.3); Carbon Dioxide 24.6 mmol/L (21.6-31.8); Chloride 105 mmol/L (96-109); Chol/HDL Ratio 3.01 Ratio; Globulin 2.7 g/dL (1.6-3.3); Glucose 105 mg/dL (70-110); Iron 52 UG/DL (65-175); LDL Cholesterol,Calculated 62.8 mg/dL (0.0-131.0); Magnesium 2.1 mg/dL (1.5-2.4); Phosphorus 3.5 mg/dL (2.4-5.1); Potassium 4.1 mmol/L (3.5-5.5); Sodium 141 mmol/L (135-145); Total Bilirubin 0.3 mg/dL (0.3-1.2); Total Iron Binding Capacity 364 UG/DL (228-460); Total Protein 6.9 g/dL (6.2-8.2); VLDL Calculation 17.96 mg/dL (5.00-40.00)
[2024-07-16 21:14] LABS: Prealbumin 22.6 mg/dL (18.0-42.0)
[2024-07-17 03:19] LABS: Urine Alcohol Negative (Negative); Urine Barbiturate Negative (Negative); Urine Cocaine Negative (Negative); Urine Methadone Negative (Negative); Urine Opiates Negative (Negative); Urine Phencyclidine Negative (Negative)
[2024-07-17 11:12] LABS: Zinc, Serum 77 ug/dL (60-130)
== END | disposition home or self-care (01) ==
LOC: LABWHC1 15:38
PROVIDERS: ATTEND Surgery Plastic and Reconstructive Surgery
DX: E55.9 Vitamin D deficiency, unspecified (principal); E89.1 Postprocedural hypoinsulinemia; E66.01 Morbid (severe) obesity due to excess calories; E44.0 Moderate protein-calorie malnutrition; E45 Retarded development following protein-calorie malnutrition; K74.1 Hepatic sclerosis; D50.8 Other iron deficiency anemias; D50.9 Iron deficiency anemia, unspecified; N19 Unspecified kidney failure; T56.894A Toxic effect of other metals, undetermined, initial encounter; K50.90 Crohn's disease, unspecified, without complications; Z68.33 Body mass index [BMI] 33.0-33.9, adult
CPT/HCPCS: 36415; 80053; 80061; 80306; 80323; 82306; 82525; 82607; 82728; 82746; 83036; 83540; 83550; 83735; 83970; 84100; 84134; 84255; 84425; 84443; 84590; 84630; 85027; 85610; 85730; 93005

== ENCOUNTER → 2024-08-17 | Day surgery (SDC) | payer BC ==
[~2024-08-17] MED LIST: LIDOCAINE 1% (10MG/ML) FOR IV START INTRADERMA PRN; LIDOCAINE 2% (PF) 20 MG/ML 5 ML VIAL ONE; PROPOFOL 10 MG/ML 20 ML VIAL IV ONE; fentaNYL (PF) 50 MCG/ML 2 ML AMP ONE
[2024-08-17] MEDS: LACTATED RINGERS 1,000 ML IV ONE (07:26)
[2024-08-17 07:42] VITALS: TEMP 98
[2024-08-17] MEDS: LACTATED RINGERS 1,000 ML IV SCH (07:43)
--- NOTE | 2024-08-17 08:15 | P.GSHP ---
History of Present Illness H&P Date: 08/17/24 CHIEF COMPLAINT: GERD HISTORY OF PRESENT ILLNESS: The patient is a 34-year-old male who presents reports gastroesophageal reflux disease. Upper endoscopy was offered for further evaluation and management. PAST MEDICAL HISTORY: Please see list. PAST SURGICAL HISTORY: Please see list. MEDICATIONS: Please see list. ALLERGIES: Please see list. SOCIAL HISTORY: No illicit drug use FAMILY HISTORY: No reports of Crohn disease or ulcerative colitis. REVIEW OF ORGAN SYSTEMS: CONSTITUTIONAL: No reports of fevers or chills. GI: Denies any blood in stools or constipation. PHYSICAL EXAM: VITAL SIGNS: Stable GENERAL: Well-developed and pleasant in no acute distress. HEENT: No scleral icterus. Extraocular movements grossly intact. Moist buccal mucosa. NECK: Supple without lymphadenopathy. CHEST: Unlabored respirations. Equal bilateral excursions. CARDIOVASCULAR: Regular rate and rhythm. Distal 2+ pulses. ABDOMEN: Soft, nondistended. MUSCULOSKELETAL: No clubbing, cyanosis, or edema. ASSESSMENT: 1. Gastroesophageal reflux disease PLAN: 1. Recommend proceeding with an upper endoscopy Past Medical History Past Medical History: No Reported History Additional Past Medical History / Comment(s): pre bariatric work up, has sleep apnea test coming up. History of Any Multi-Drug Resistant Organisms: None Reported Past Surgical History: No Surgical Hx Reported Additional Past Anesthesia/Blood Transfusion Reaction / Comment(s): no anesthesia hx Smoking Status: Never smoker - Past Family History Mother Family Medical History: Hypertension Father Family Medical History: Diabetes Mellitus, Myocardial Infarction ([place]) Medications and Allergies Home Medications Medication Instructions Recorded Confirmed Type Dextroamphetamine/Amphetamine 30 mg PO BID 11/10/14 08/13/24 History [Adderall] Ibuprofen 600 mg PO DAILY PRN 07/15/24 08/13/24 History Ergocalciferol [Vitamin D2 (1250 50,000 unit PO WEEKLY 07/20/24 08/13/24 History Mcg = 10070 Iu)] Multivitamins, Thera [Multivitamin 1 tab PO DAILY 07/20/24 08/13/24 History (formulary)] Allergies Allergy/AdvReac Type Severity Reaction Status Date / Time No Known Allergies Allergy Verified 08/13/24 14:47 Surgical - Exam Vital Signs Temp Pulse Resp BP Pulse Ox 98 F 76 18 154/86 94 L 08/17/24 07:41 08/17/24 07:41 08/17/24 07:41 08/17/24 07:41 08/17/24 07:41
[2024-08-17 08:55] VITALS: BP 104/72; PULSE 70; RESP 16
--- NOTE | 2024-08-17 09:09 | P.PCN ---
Date of Procedure: 08/17/24 Description of Procedure: PREOPERATIVE DIAGNOSIS: Dysphagia Gastroesophageal reflux disease. Morbid obesity. POSTOPERATIVE DIAGNOSIS: Gastroesophageal reflux disease with erosive esophagitis Morbid obesity. Gastritis. Diaphragmatic hiatal hernia Obstructive sleep apnea Esophageal ulcers OPERATION: Esophagogastroduodenoscopy with cold forceps biopsies along esophagus, antrum and duodenum SURGEON: Vane Fuentes MD ANESTHESIA: MAC. INDICATIONS: The patient is a 34-year-old male who presents with reflux disease. Benefits and risks of the procedure were described. Informed consent was obtained. DESCRIPTION: The patient was brought into the endoscopy suite and laid in the left lateral decubitus position. An Olympus gastroscope was passed along the posterior oropharynx down to the distal esophagus where the squamocolumnar junction was encountered at 40 cm from the incisors. The stomach was entered and no bile reflux was found. Additional findings are listed below. Biopsies with cold forceps were obtained of the antrum. The first through third portion of the duodenum was examined. Retroflexion of the scope confirmed Hill grade 3 lower esophageal valve. The squamocolumnar junction demonstrated LA grade B erosive esophagitis. The stomach was desufflated. The patient tolerated the procedure well. FINDINGS: Squamocolumnar junction 40 cm from the incisors. Diaphragmatic hiatus at 41 cm. Hiatal hernia, 1 cm Hill grade 2 lower esophageal valve. LA grade C erosive esophagitis. Biopsies obtained. Biopsies obtained of the duodenum. Chronic gastritis with biopsies obtained. Esophageal ulcers RECOMMENDATIONS: Omeprazole 40 mg daily prescribed Plan - Discharge Summary Discharge Rx Participant: No New Discharge Prescriptions: New Omeprazole [PriLOSEC] 40 mg PO DAILY #14 cap Continue Dextroamphetamine/Amphetamine [Adderall] 30 mg PO BID Multivitamins, Thera [Multivitamin (formulary)] 1 tab PO DAILY Ergocalciferol [Vitamin D2 (1250 Mcg = 50612 Iu)] 50,000 unit PO WEEKLY Discontinued Ibuprofen 600 mg PO DAILY PRN PRN Reason: Pain Discharge Medication List Dextroamphetamine/Amphetamine [Adderall] 30 mg PO BID 11/10/14 [History] Ergocalciferol [Vitamin D2 (1250 Mcg = 48130 Iu)] 50,000 unit PO WEEKLY 07/20/24 [History] Multivitamins, Thera [Multivitamin (formulary)] 1 tab PO DAILY 07/20/24 [History] Omeprazole [PriLOSEC] 40 mg PO DAILY #14 cap 08/17/24 [Rx] Follow up Appointment(s)/Referral(s): [facility] [NON-STAFF] - 09/02/24 3:00 pm Patient Instructions/Handouts: Gastritis (DC), Diet for Stomach Ulcers and Gastritis (GEN) Discharge Disposition: HOME SELF-CARE
== END | disposition home or self-care (01) ==
LOC: ORWHC2ENDO 07:11
PROVIDERS: ATTEND Surgery Plastic and Reconstructive Surgery
DX: K29.50 Unspecified chronic gastritis without bleeding (principal); K21.00 Gastro-esophageal reflux disease with esophagitis, without bleeding; E66.01 Morbid (severe) obesity due to excess calories; K44.9 Diaphragmatic hernia without obstruction or gangrene; G47.33 Obstructive sleep apnea (adult) (pediatric); K22.10 Ulcer of esophagus without bleeding
CPT/HCPCS: 43239; J3010; J2704; J2003; 88305

== ENCOUNTER → 2024-09-02 | Outpatient (CLI) | payer BC ==
[2024-09-02 15:27] VITALS: BP 134/87; PULSE 74; RESP 16; TEMP 97.5
--- NOTE | 2024-09-02 16:19 | P.SLEEP ---
History of Present Illness DATE: 09/02/2024 CONSULTATION/NEW PATIENT EVALUATION HISTORY OF PRESENT ILLNESS/SLEEP-WAKE EVALUATION: 34-year-old gentleman had b een evaluated in the sleep center for possible obstructive sleep apnea hypopnea syndrome. SLEEP SCHEDULE: Usually sleep schedule 9 PM to 3:30 AM 1 working days and from 10 PM to 8:30 AM on weekend. FALLING ASLEEP: No problems with falling asleep, no TV in bedroom. DURING SLEEP: Patient has loud snoring and wakes up from sleep several times. Positive history of nocturia. No history of hypnogogical hallucinations, sleep paralysis, or cataplexy. DURING THE DAY/WAKE STATE: In the morning patient wake up tired, falling asleep during the day. Mchenry sleepiness scale is in very high range of 16. Usually patient does not take naps. PAST MEDICAL HISTORY: ADHD, obesity. PAST SURGICAL HISTORY: Patient is preparing for bariatric surgery. MEDICATIONS: Adderall 30 mg twice a day, Motrin. SOCIAL HISTORY: Please see below, alcohol consumption occasional. FAMILY HISTORY: Please see below. REVIEW OF SYSTEMS: Loud snoring, awakenings from sleep, sleepiness during the day. No fevers. No double vision. No recent chest pain. No shortness of breath. No abdominal pain. No bleeding episodes. No blood in urine. No seizure episodes. PHYSICAL EXAMINATION: GENERAL: A pleasant patient without any distress. VITAL SIGNS: Please see below, weight 437 pounds, BMI 62.7. HEENT: PERRLA, EOMI. Evaluation of oropharynx showed tongue protrudes midline, low position of soft palate Mallampati 4. NECK: Supple. No JVD. Thyroid is not palpable. 20 inches in circumference. LUNGS: Clear to percussion and to auscultation. Good air exchange. No wheezing or rhonchi. HEART: S1, S2 regular. No murmurs, gallops or rubs. ABDOMEN: Soft and nontender. Bowel sounds are present. No organomegaly appreciated. EXTREMITIES: No clubbing or cyanosis. SENIOR ENGINEERING TECHNICIAN: Awake, alert, and oriented x3. Cranial nerves 2 to 7 intact. There is no fasciculation or atrophy noted. No focal deficits observed. ASSESSMENT: 1. Snoring, awakenings from sleep, extremely low position of soft palate Mallampati 4, extremely wide neck 20 inches in circumference, sleepiness with high Mchenry Sleepiness Scale of 16. Obstructive sleep apnea hypopnea syndrome. 2. Morbid obesity, BMI 62.7. Patient is preparing for bariatric surgery. 3. ADHD. 4. Pain in the right foot. PLAN: 1. Polysomnography for evaluation of patient's breathing during sleep. 2. Following plan after reading sleep study. 3. Preferable position during sleep on the side. 4. No driving if patient feels any sleepiness. Patient is aware of civil and criminal liability for unsafe driving. 5. Sleep hygiene with regular sleep time for at least 7.5-8 hours. 6. Watching and losing weight. Thank you very much for referring this patient for consultation. Sincerely, Mele Burns MD, PhD, FAASM. Diplomat of [employer] [place] [employer], Sleep Medicine Board by [employer] [place] [employer] [facility] [place] cc: Marium Agarwal MD Past Medical History Past Medical History: No Reported History Additional Past Medical History / Comment(s): pre bariatric work up, has sleep apnea test coming up. History of Any Multi-Drug Resistant Organisms: None Reported Past Surgical History: No Surgical Hx Reported Additional Past Anesthesia/Blood Transfusion Reaction / Comment(s): no anesthesia hx Past Psychological History: ADD/ADHD Smoking Status: Never smoker Past Alcohol Use History: Occasional Past Drug Use History: None Reported - Past Family History Mother Family Medical History: Hypertension Father Family Medical History: Diabetes Mellitus, Myocardial Infarction ([place]) Medications and Allergies Home Medications Medication Instructions Recorded Confirmed Type Dextroamphetamine/Amphetamine 30 mg PO BID 11/10/14 09/02/24 History [Adderall] Ergocalciferol [Vitamin D2 (1250 50,000 unit PO WEEKLY 07/20/24 08/13/24 History Mcg = 63145 Iu)] Multivitamins, Thera [Multivitamin 1 tab PO DAILY 07/20/24 09/02/24 History (formulary)] Omeprazole [PriLOSEC] 40 mg PO DAILY #14 cap 08/17/24 09/02/24 Rx Allergies Allergy/AdvReac Type Severity Reaction Status Date / Time No Known Allergies Allergy Verified 08/13/24 14:47 Physical Exam Vitals: Vital Signs Temp Pulse Resp BP Pulse Ox 09/02/24 15:26 97.5 F L 74 16 134/87 97 Intake and Output 04/30/25 04/30/25 04/30/25 06:59 14:59 22:59 Other: Weight 198.22 kg Sleep Note - Sleep Data ESS Total: 16 - Sleep Note Sleep Note: Temperature: 97.5 F Pulse Rate: 74 Respiratory Rate: 16 Blood Pressure: 134/87 SpO2: 97 Height: 5 ft 10 in Weight: 198.22 kg BMI: Neck Circumference: 20
== END ==
LOC: 3 N SLEEP 14:55
PROVIDERS: ATTEND Internal Medicine
DX: G47.33 Obstructive sleep apnea (adult) (pediatric) (principal); E66.01 Morbid (severe) obesity due to excess calories; M79.671 Pain in right foot; F90.9 Attention-deficit hyperactivity disorder, unspecified type; Z68.44 Body mass index [BMI] 60.0-69.9, adult; Z98.84 Bariatric surgery status
CPT/HCPCS: 99211

== ENCOUNTER → 2024-09-09 | Outpatient (CLI) | payer BC ==
[2024-09-09 15:21] VITALS: BP 134/83; PULSE 76; RESP 16; TEMP 97.9; BMI 66.0
--- NOTE | 2024-09-09 16:38 | P.BASOAP ---
Subjective Progress Note Date: 09/09/24 Labs reviewed. Vitamin D and iron. EKG reviewed. Sleep study reviewed. Need food journal. Sleep apnea. Needs psych. Follow up in Mid October. Food journal. 120 oz and water. Objective - Vital Signs Vital signs: Vital Signs Temp 97.9 F 09/09/24 15:18 Pulse 76 09/09/24 15:18 Resp 16 09/09/24 15:18 BP 134/83 09/09/24 15:18 Pulse Ox FiO2 Intake & Output 09/08/24 09/09/24 09/09/24 18:59 06:59 18:59 Weight 200.034 kg Assessment/Plan Plan: Date: 09/09/24 Initial Weight: 198.673 kg Initial BMI: 65.6 Current Weight: 200.034 kg Current BMI: 66.0 Type of Surgery: Total Volume in Band: Previous Volume: Volume Removed: Volume Added: Band Size:
== END ==
LOC: BARWHC3 14:50
PROVIDERS: ATTEND Surgery Plastic and Reconstructive Surgery
DX: E66.01 Morbid (severe) obesity due to excess calories (principal); Z68.44 Body mass index [BMI] 60.0-69.9, adult
CPT/HCPCS: 99211

== ENCOUNTER → 2024-10-21 | Outpatient (CLI) | payer BC ==
[2024-10-21 16:25] VITALS: BP 138/90; PULSE 72; RESP 16; TEMP 98.5; BMI 64.0
--- NOTE | 2024-10-21 16:59 | P.BASOAP ---
Subjective Progress Note Date: 10/21/24 He getting 170 to 190 grams of protein. He is already losing weight. 8 pounds. Date for surgery. Sleeve ok. EKG Consent for sleeve. EKG ok. Agree with sleeve November 02 Objective - Vital Signs Vital signs: Vital Signs Temp 98.5 F 10/21/24 16:16 Pulse 72 10/21/24 16:16 Resp 16 10/21/24 16:16 BP 138/90 10/21/24 16:16 Pulse Ox FiO2 Intake & Output 10/20/24 10/21/24 10/21/24 18:59 06:59 18:59 Weight 193.684 kg Assessment/Plan Plan: Date: 10/21/24 Initial Weight: 198.673 kg Initial BMI: 65.6 Current Weight: 193.684 kg Current BMI: 64.0 Type of Surgery: Total Volume in Band: Previous Volume: Volume Removed: Volume Added: Band Size:
== END ==
LOC: BARWHC3 15:08
PROVIDERS: ATTEND Surgery Plastic and Reconstructive Surgery
DX: E66.01 Morbid (severe) obesity due to excess calories (principal); Z68.44 Body mass index [BMI] 60.0-69.9, adult
CPT/HCPCS: 99211

== ENCOUNTER → 2024-10-26 | Outpatient (CLI) | payer BC ==
[2024-10-27 08:42] VITALS: BMI 64.6
== END ==
LOC: BARWHC3 12:30
PROVIDERS: ATTEND Surgery Plastic and Reconstructive Surgery
DX: E66.01 Morbid (severe) obesity due to excess calories (principal)
CPT/HCPCS: 97804

== ENCOUNTER → 2024-10-28 | Outpatient (CLI) | payer BC ==
[2024-10-28 15:14] LABS: Basophils # (A) 0.06 X 10*3/uL (0.00-0.10); Basophils % (A) 0.9 %; Eosinophils # (A) 0.16 X 10*3/uL (0.04-0.35); Eosinophils % (A) 2.3 %; HCT 43.6 % (39.6-50.0); HGB 14.8 g/dL (13.0-17.0); Lymphocytes # (A) 1.44 X 10*3/uL (0.90-5.00); Lymphocytes % (A) 20.5 %; MCH 28.7 pg (27.0-32.0); MCHC 33.9 g/dL (32.0-37.0); MCV 84.5 FL (80.0-97.0); Mean Platelet Volume 10.1 FL (9.5-12.2); Monocytes # (A) 0.51 X 10*3/uL (0.20-1.00); Monocytes % (A) 7.3 %; NRBC Per 100 WBC 0 X 10*3/uL (0.00-0.01); Neutrophils # (A) 4.82 X 10*3/uL (1.80-7.70); Neutrophils % (A) 68.6 %; Platelet Count 187 X 10*3/uL (140-440); RBC 5.16 X 10*6/uL (4.40-5.60); RDW 13.2 % (11.5-14.5); WBC 7.02 X 10*3/uL (4.50-10.00)
[2024-10-28 15:33] LABS: ALT 42 U/L (10-49); AST 32 U/L (14-35); Albumin/Globulin Ratio 1.48 Ratio (1.60-3.17); Alkaline Phosphatase 59 U/L (41-126); BUN/Creat Ratio 17.43 Ratio (12.00-20.00); Blood Urea Nitrogen 12.2 mg/dL (9.0-27.0); Calcium 9.1 mg/dL (8.7-10.3); Carbon Dioxide 25.5 mmol/L (21.6-31.8); Chloride 106 mmol/L (96-109); Globulin 2.7 g/dL (1.6-3.3); Glucose 88 mg/dL (70-110); Potassium 4.1 mmol/L (3.5-5.5); Sodium 140 mmol/L (135-145); Total Bilirubin 0.8 mg/dL (0.3-1.2); Total Protein 6.7 g/dL (6.2-8.2)
== END | disposition home or self-care (01) ==
LOC: LABPAT 07:59
PROVIDERS: ATTEND Surgery Plastic and Reconstructive Surgery
DX: Z01.812 Encounter for preprocedural laboratory examination (principal); E66.01 Morbid (severe) obesity due to excess calories
CPT/HCPCS: 80053; 85025; 86850; 86900; 86901

== ENCOUNTER 2024-11-02 09:51 | Day surgery (SDC) | payer BC ==
--- NOTE | 2024-11-02 08:14 | P.GSHP ---
History of Present Illness H&P Date: 11/02/24 CHIEF COMPLAINT: Morbid obesity HISTORY OF PRESENT ILLNESS: Zach Armijo is a 34-year-old male who comes with lifelong morbid obesity. As result of morbid obesity, he has developed hypertensive heart disease, obstructive sleep apnea, hyperlipidemia, osteoarthritis of the hips and knees. She has completed medical supervised weight loss. She completed medical including cardiac assessment. He has completed psychological risk assessment. All surgical options were reviewed. He elected for gastric sleeve gastrectomy. At height of 5 feet 11 inches, ideal body weight is 178 pounds. Highest weight 441 pounds, BMI 61.6. He comes in 425 pounds. Body mass index is 59.3. He is 246 pounds overweight. PAST MEDICAL HISTORY: 1. Morbid obesity due to excess calories 2. Body mass index of 61.6 3. Osteoarthritis of the knees. 4. Osteoarthritis of the lower back. 5. Hypertensive heart disease. 6. Gastroesophageal reflux disease 7. Hyperlipidemia 8. Obstructive sleep apnea 9. Attention deficit disorder with ADHD PAST SURGICAL HISTORY: 1. Upper endoscopy HOME MEDICATIONS: Reviewed ALLERGIES: Reviewed SOCIAL HISTORY: No past tobacco use. FAMILY HISTORY: No family history of ulcerative colitis disease or Crohn's disease. Family history of morbid obesity. No lupus in the family. No reports of stomach or esophageal cancer. REVIEW OF ORGAN SYSTEMS: CONSTITUTIONAL: At height of 5 feet 11 inches, ideal body weight is 178 pounds. Highest weight 441 pounds, BMI 61.6. He comes in 425 pounds. Body mass index is 59.3. He is 246 pounds overweight. HEENT: Denies any active troubles with vision or hearing. ENDOCRINE: Denies diabetes. Denies hypothyroidism. CARDIOVASCULAR: Denies past reports of palpitations or heart attacks or chest pain. RESPIRATORY: Has daytime somnolence. Obstructive sleep apnea GASTROINTESTINAL: Denies any bright red blood per rectum. Has gastroesophageal reflux disease. MUSCULOSKELETAL: Has lower back pain and joint pain. Has osteoarthritis of the knees. NEURO: No headaches. No seizure disorders. PSYCH: Denies depression. No suicidal ideation. Has ADHD with ADD RHEUMATOLOGIC: No lupus. No rheumatoid arthritis. HEMATOLOGIC: Denies any abnormal bleeding or bruising. No personal history of DVTs. SKIN: Denies rash. No skin cancer. PHYSICAL EXAM: VITAL SIGNS: Height 5 foot 11 inches, weight 425 pounds. BMI 59.3 GENERAL: Well-developed in no acute distress. HEENT: No scleral icterus. Extraocular movements grossly intact. Hears conversational speech. No nasal drainage. NECK: Supple without lymphadenopathy. CHEST: Nonlabored respirations with equal bilateral excursions. CARDIOVASCULAR: Regular rate and regular rhythm. Distal 2+ pulses. ABDOMEN: Obese, soft, nontender, nondistended. MUSCULOSKELETAL: No clubbing, cyanosis. NEURO: No focal or lateralizing signs. Cranial nerves 2 through 12 grossly wi thin normal limits. PSYCH: Appropriate affect. Alert and oriented to person, place and time. SKIN: Good skin turgor. Well perfused. ASSESSMENT: 1. Morbid obesity due to excess calories 2. Body mass index of 61.6 3. Osteoarthritis of the knees. 4. Osteoarthritis of the lower back. 5. Hypertensive heart disease. 6. Gastroesophageal reflux disease 7. Hyperlipidemia 8. Obstructive sleep apnea 9. Attention deficit disorder with ADHD PLAN: 1. Bariatric options between a sleeve, band and a Nati-en-Y gastric bypass were reviewed in detail. The patient elected for a gastric sleeve. Robotic assisted approach described. 2. The [place] [facility] Data was also reviewed with benefits and risks as described. 3. An 8 page second-generation bariatric consent form was reviewed in detail including potential of bleeding, infection, leaks, adequate weight loss, nutritional deficiencies which the patient demonstrated understanding of the risks. 4. A 2 week high-protein low caloric 800 kcal diet described to address hepatomegaly. 5. Preoperative labs including complete metabolic panel and CBC with type and screen recommended. 6. DVT prophylaxis per [place] [facility]. 7. Antibiotic prophylaxis. 8. Inpatient hospitalization anticipated for more than 2 nights. 9. All questions and concerns were addressed with the patient. 10. He is at elevated risk for perioperative complications secondary to obstructive sleep apnea 11. Overall, patient has expressed understanding of bariatric care including postoperative diet and commitment of lifestyle. Patient should benefit from surgical intervention for correction of her morbid obesity. Past Medical History Past Medical History: GERD/Reflux, Sleep Apnea/CPAP/BIPAP Additional Past Medical History / Comment(s): recent sleep apnea test-told had sleep apnea, just got CPAP machine 10/27/24 History of Any Multi-Drug Resistant Organisms: None Reported Past Surgical History: No Surgical Hx Reported Additional Past Surgical History / Comment(s): EGD Past Anesthesia/Blood Transfusion Reactions: No Reported Reaction Additional Past Anesthesia/Blood Transfusion Reaction / Comment(s): no anesthesia hx Smoking Status: Never smoker - Past Family History Mother Family Medical History: Hypertension Father Family Medical History: Diabetes Mellitus, Myocardial Infarction ([place]) Medications and Allergies Home Medications Medication Instructions Recorded Confirmed Type Dextroamphetamine/Amphetamine 30 mg PO BID 11/10/14 10/27/24 History [Adderall] Ergocalciferol [Vitamin D2 (1250 50,000 unit PO WEEKLY 07/20/24 10/27/24 History Mcg = 04770 Iu)] Multivitamins, Thera [Multivitamin 1 tab PO DAILY 07/20/24 10/27/24 History (formulary)] Omeprazole [PriLOSEC] 40 mg PO DAILY #14 cap 08/17/24 10/27/24 Rx Ibuprofen [Motrin] 800 mg PO Q8H PRN 10/27/24 10/27/24 History Allergies Allergy/AdvReac Type Severity Reaction Status Date / Time No Known Allergies Allergy Verified 10/27/24 15:44
[~2024-11-02 09:51] MED LIST changes: -LIDOCAINE 2% (PF) 20 MG/ML 5 ML VIAL ONE; +ONDANSETRON 4 MG/2 ML VIAL IVP PRN; -PROPOFOL 10 MG/ML 20 ML VIAL IV ONE; -fentaNYL (PF) 50 MCG/ML 2 ML AMP ONE
[2024-11-02] MEDS: ACETAMINOPHEN TAB 500 MG TAB PO PRN (11:12)
[2024-11-02] MEDS: PANTOPRAZOLE 40 MG/10 ML VIAL IVP STA (11:13)
[2024-11-02] MEDS: ONDANSETRON 4 MG/2 ML VIAL IVP ONE (11:13)
[2024-11-02] MEDS: ALVIMOPAN 12 MG CAPSULE PO PRN (11:13)
[2024-11-02] MEDS: CHLORHEXIDINE GLUCONATE 15 ML CUP MUCOUS MEM STA (11:14)
[2024-11-02] MEDS: DEXAMETHASONE SOD PHOSPHATE 4 MG/ML 1 ML VIAL IV ONE (11:14)
[2024-11-02] MEDS: SCOPOLAMINE 1 MG/72 HR PATCH TRANSDERM STA (11:15)
[2024-11-02] MEDS: IV FLUID CONTINUATION 1,000 ML IV ONE ×3 (11:20→17:15)
[2024-11-02] MEDS: ENOXAPARIN 40 MG/0.4 ML SYRINGE SQ PRN (11:49)
[2024-11-02] MEDS: LACTATED RINGERS 1,000 ML IV SCH (11:50)
--- NOTE | 2024-11-02 11:57 | P.ANPRN ---
Procedure Note - Anesthesia - Nerve Block Performed Bilateral Erector Spinae Single Time Out Performed: Yes Date of Procedure: 11/02/24 Procedure Start Time: Procedure Stop Time: Location of Patient: PreOp Indication: Acute Post-Operative Pain, Analgesia, Requested by Surgeon Sedation Type: Sedate with meaningful contact maintained Preparation: Sterile Prep Position: Sitting Catheter: None Needle Types: Pajunk Needle Gauge: 21 Ultrasound used to visualize needle placement: Yes Ultrasound used to observe medication spread: Yes Injectate: 0.5% Ropivacaine (see comment for volume) ([id number] , needle level T7-- each side.) Blood Aspirated: No Pain Paresthesia on Injection Noted: No Resistance on Injection: Normal Image Stored and Saved: Yes Events: Uneventful and Well Tolerated
[2024-11-02] MEDS: MIDAZOLAM 2 MG/2 ML VIAL IV ONE (11:58)
[2024-11-02] MEDS: SODIUM CHLORIDE 0.9% 50 ML with ceFAZolin 1,000 MG IV ONE (12:03)
[2024-11-02] MEDS: LIDOCAINE 1%-EPI 1:100,000 20 ML VIAL SQ ONE (12:28)
[2024-11-02] MEDS: LACTATED RINGERS 1,000 ML IV ONE (13:32)
[2024-11-02] MEDS ORDERED: MIDAZOLAM 2 MG/2 ML VIAL ONE (13:46)
[2024-11-02] MEDS ORDERED: GLYCOPYRROLATE 0.2 MG/ML 2 ML VIAL ONE (13:46)
[2024-11-02] MEDS ORDERED: SUCCINYLCHOLINE CHLORIDE 200 MG/10 ML VIAL IV ONE (13:46)
[2024-11-02] MEDS ORDERED: LIDOCAINE 1% INJ 10MG/ML (20 ML MDV) ONE (13:46)
[2024-11-02] MEDS ORDERED: NEOSTIGMINE 1 MG/ML 10 ML VIAL ONE (13:46)
[2024-11-02] MEDS ORDERED: ROCURONIUM 10 MG/ML (5 ML VIAL) IV ONE (13:46)
[2024-11-02] MEDS ORDERED: DEXAMETHASONE SOD PHOSPHATE 4 MG/ML 1 ML VIAL ONE (13:46)
[2024-11-02] MEDS ORDERED: fentaNYL (PF) 50 MCG/ML 2 ML AMP ONE (13:46)
[2024-11-02] MEDS ORDERED: PROPOFOL 10 MG/ML 20 ML VIAL IV ONE (13:46)
[2024-11-02] MEDS ORDERED: ROPIVACAINE 5 MG/ML 30 ML VIAL ONE (13:46)
[2024-11-02] MEDS: HYDROmorphone 0.5 MG/0.5 ML SYRINGE IVP PRN (14:10)
[2024-11-02] MEDS ORDERED: NALOXONE 0.4 MG/ML 1 ML VIAL IV PRN (14:22)
[2024-11-02] MEDS: droPERidol 2.5 MG/ML VIAL IVP ONE (17:44)
[2024-11-02] MEDS: 0.9% NACL WITH KCL 20 MEQ/L 1,000 ML IV SCH (17:45)
[2024-11-02] MEDS: SODIUM CHLORIDE 0.9% 1,000 ML IV SCH (17:45)
[2024-11-02] MEDS: DEXAMETHASONE SOD PHOSPHATE 10 MG/ML 1 ML VIAL IVP STA (17:45)
[2024-11-02] MEDS: ALBUTEROL NEBULIZED 2.5 MG/3 ML INHALATION SCH (17:46)
[2024-11-02] MEDS: DEXAMETHASONE SOD PHOSPHATE 4 MG/ML 1 ML VIAL IVP SCH (17:59)
[2024-11-02] MEDS: ONDANSETRON 4 MG/2 ML VIAL IVP SCH (17:59)
[2024-11-02] MEDS: ACETAMINOPHEN IV (For NPO) 1,000 MG in EMPTY BAG 1 BAG IVPB SCH (17:59)
[2024-11-02] MEDS: SIMETHICONE 40 MG/0.6 ML DROPS 2,000 MG/30 ML BOTTLE PO SCH (18:00)
[2024-11-02] MEDS: HYOSCYAMINE ORAL DROPS 1.875 MG/15 ML BOTTLE PO SCH (18:00)
[2024-11-02] MEDS: HYDROmorphone 1 MG/ML 1 ML SYRINGE IVP PRN (20:00)
[2024-11-02] MEDS: PANTOPRAZOLE 40 MG/10 ML VIAL IV SCH (20:01)
[2024-11-03 07:11] LABS: Anion Gap 12.80 mmol/L (4.00-12.00); Blood Urea Nitrogen 8.6 mg/dL (9.0-27.0); Calcium 9.1 mg/dL (8.7-10.3); Carbon Dioxide 18.2 mmol/L (21.6-31.8); Chloride 105 mmol/L (96-109); Magnesium 1.9 mg/dL (1.5-2.4); Potassium 4.8 mmol/L (3.5-5.5); Sodium 136 mmol/L (135-145)
[2024-11-03 07:23] LABS: Basophils # (A) 0.01 X 10*3/uL (0.00-0.10); Basophils % (A) 0.1 %; Eosinophils # (A) 0 X 10*3/uL (0.04-0.35); Eosinophils % (A) 0 %; HCT 44.4 % (39.6-50.0); HGB 15.3 g/dL (13.0-17.0); Immature Grans, Automated 0.50 %; Lymphocytes # (A) 0.59 X 10*3/uL (0.90-5.00); Lymphocytes % (A) 6.2 %; MCH 28.4 pg (27.0-32.0); MCHC 34.5 g/dL (32.0-37.0); MCV 82.4 FL (80.0-97.0); Monocytes # (A) 0.12 X 10*3/uL (0.20-1.00); Monocytes % (A) 1.3 %; NRBC Per 100 WBC 0 X 10*3/uL (0.00-0.01); Neutrophils # (A) 8.82 X 10*3/uL (1.80-7.70); Neutrophils % (A) 91.9 %; Platelet Count 212 X 10*3/uL (140-440); RBC 5.39 X 10*6/uL (4.40-5.60); RDW 13.2 % (11.5-14.5); WBC 9.59 X 10*3/uL (4.50-10.00)
[2024-11-03 07:59] VITALS: BP 151/64; PULSE 73; RESP 16; TEMP 98
[2024-11-03] MEDS: MIDAZOLAM 2 MG/2 ML VIAL IM ONE (08:06)
[2024-11-03] MEDS: 0.9% NACL WITH KCL 20 MEQ/L 1,000 ML IV SCH (08:32)
[2024-11-03] MEDS: ENOXAPARIN 40 MG/0.4 ML SYRINGE SQ SCH (08:32)
[2024-11-03 11:01] VITALS: BMI 57.2
--- NOTE | 2024-11-03 13:04 | P.DS ---
Providers Expected date of discharge: 11/03/24 Attending physician: Vane Fuentes Primary care physician: Marium Agarwal Hospital Course: Discharge diagnosis 1. Morbid obesity due to excess calories 2. Body mass index of 61.6 3. Osteoarthritis of the knees. 4. Osteoarthritis of the lower back. 5. Hypertensive heart disease. 6. Gastroesophageal reflux disease 7. Hyperlipidemia 8. Obstructive sleep apnea 9. Attention deficit disorder with ADHD Hospital course This is a 34-year-old male with history of morbid obesity. He is status post robotic assisted laparoscopic sleeve gastrectomy. Patient tolerated surgery well. Pain controlled. He is tolerating diet. He has been up and ambulating. He is afebrile. He is stable for discharge. Physician Infrastructure Tech note has been reviewed by physician. Signing provider agrees with the documented findings, assessment, and plan of care. Please see additional documentation per MD. Bariatric dietary instruction reviewed in detail. Close outpatient follow-up as described with outpatient esophagram. Procedures: OPERATION: 1. Robotic assisted daVinci Xi laparoscopic sleeve gastrectomy with 40-Divehi bougie, multiport. 2. Intraoperative esophagogastroduodenoscopy. ANESTHESIA: Gen. local anesthetic ESTIMATED BLOOD LOSS: 5 mL SPECIMENS REMOVED: Sleeve gastrectomy COMPLICATIONS: None. FINDINGS: 1. Negative intraoperative esophagogastrojejunoscopy leak test. 2. No large hiatus hernia. 3. Total of 6 staplers used including 60 mm robotic stapler loads: 2 black loads, 1 green loads, 3 blue loads- 60 mm green obot joselito used to create the gastric sleeve. 4. Sleeve gastrectomy 29 cm x 8 cm Patient Condition at Discharge: Stable Plan - Discharge Summary Discharge Rx Participant: Yes New Discharge Prescriptions: New Simethicone 40 mg/0.6 ml Drops [Mylicon Drops] 40 mg PO PCHS PRN #30 ml PRN Reason: Gas ursodioL [Ursodiol] 300 mg PO BID 30 Days #60 capsule Ondansetron Odt [Zofran Odt] 4 mg PO Q8HR PRN #9 tab PRN Reason: Nausea Acetaminophen Tab [Tylenol] 1,000 mg PO Q6HR PRN #30 tablet PRN Reason: Pain bisacodyL [Dulcolax] 5 mg PO DAILY PRN #10 tab PRN Reason: Constipation Omeprazole [PriLOSEC] 40 mg PO DAILY #90 cap Continue Dextroamphetamine/Amphetamine [Adderall] 30 mg PO BID Discontinued Multivitamins, Thera [Multivitamin (formulary)] 1 tab PO DAILY Omeprazole [PriLOSEC] 40 mg PO DAILY #14 cap Ibuprofen [Motrin] 800 mg PO Q8H PRN PRN Reason: Pain Ergocalciferol [Vitamin D2 (1250 Mcg = 78562 Iu)] 50,000 unit PO WEEKLY No Action Scopolamine 1 mg/72 Hr Patch [TransDerm Scop] 1 patch TRANSDERM Q72H #4 patch Discharge Medication List Dextroamphetamine/Amphetamine [Adderall] 30 mg PO BID 11/10/14 [History] Acetaminophen Tab [Tylenol] 1,000 mg PO Q6HR PRN #30 tablet 11/03/24 [Rx] Omeprazole [PriLOSEC] 40 mg PO DAILY #90 cap 11/03/24 [Rx] Ondansetron Odt [Zofran Odt] 4 mg PO Q8HR PRN #9 tab 11/03/24 [Rx] Simethicone 40 mg/0.6 ml Drops [Mylicon Drops] 40 mg PO PCHS PRN #30 ml 11/03/24 [Rx] bisacodyL [Dulcolax] 5 mg PO DAILY PRN #10 tab 11/03/24 [Rx] ursodioL [Ursodiol] 300 mg PO BID 30 Days #60 capsule 11/03/24 [Rx] Scopolamine 1 mg/72 Hr Patch [TransDerm Scop] 1 patch TRANSDERM Q72H #4 patch 11/04/24 [Rx] Follow up Appointment(s)/[facility] [place] [facility] (please [facility] to schedule appointment time) Patient Instructions/Handouts: Nutrition after Bariatric Surgery (DC), Nutrition after Bariatric Surgery (GEN), Laparoscopic Sleeve Gastrectomy (DC) Activity/Diet/Wound Care/Special Instructions: Liquid diet only for 2 weeks No lifting over 4 pounds in 4 weeks May Shower. No soaking in bath tubs for 2 weeks Please notify your surgeon if you develop nausea and vomiting including new onset of abdominal pain. Continue to use incentive spirometry to prevent pneumonias. Please continue to ambulate at home to prevent blood clots in legs. Follow-up at the bariatric center. May shower. Dressings to be discontinued by surgeon in the office. Drink 64 oz of fluid daily. Start protein shakes on . Notify bariatric center for temp over 101.0, increased pain, drainage from incisions. No straws or carbonated beverages. Liquid diet only. Sugar content should be less than 6 g to avoid dumping syndrome. Take MOM for constipation. CRUSH, OPEN, OR CUT TABLETS LARGER THAN A SIZE OF A TIC TAC Do not take any Motrin or ibuprofen Do not take any vitamins due to increase of bleeding risk after surgery Discharge Disposition: HOME SELF-CARE
--- NOTE | 2024-11-15 22:12 | P.OP ---
Date of Procedure: 11/02/24 Description of Procedure: SURGEON: MICH COLLADO MD PREOPERATIVE DIAGNOSES: 1. Morbid obesity due to excess calories 2. Body mass index of 66.1 3. Osteoarthritis of the knees. 4. Osteoarthritis of the lower back. 5. Hypertensive heart disease. 6. Gastroesophageal reflux disease 7. Hyperlipidemia 8. Obstructive sleep apnea 9. Attention deficit disorder with ADHD POSTOPERATIVE DIAGNOSES: 1. Morbid obesity due to excess calories 2. Body mass index of 66.1 3. Osteoarthritis of the knees. 4. Osteoarthritis of the lower back. 5. Hypertensive heart disease. 6. Gastroesophageal reflux disease 7. Hyperlipidemia 8. Obstructive sleep apnea 9. Attention deficit disorder with ADHD 10. Hepatomegaly with fatty liver disease OPERATION: 1. Robotic assisted daVinci Xi laparoscopic sleeve gastrectomy with 40-Belarusian bougie, multiport. 2. Intraoperative esophagogastroduodenoscopy. ANESTHESIA: Gen. local anesthetic ESTIMATED BLOOD LOSS: 5 mL SPECIMENS REMOVED: Sleeve gastrectomy COMPLICATIONS: None. FINDINGS: 1. Negative intraoperative esophagogastrojejunoscopy leak test. 2. No large hiatus hernia. 3. Total of 6 staplers used including 60 mm robotic stapler loads: 2 black loads, 1 green loads, 3 blue loads- 60 mm green obot joselito used to create the gastric sleeve. 4. Sleeve gastrectomy 29 cm x 8 cm INDICATIONS: Zach Armijo is a 34-year-old male who comes with lifelong morbid obesity. As result of morbid obesity, he has developed hypertensive heart disease, obstructive sleep apnea, hyperlipidemia, osteoarthritis of the hips and knees. She has completed medical supervised weight loss. She completed medical including cardiac assessment. He has completed psychological risk assessment. All surgical options were reviewed. He elected for gastric sleeve gastrectomy. At height of 5 feet 11 inches, ideal body weight is 178 pounds. Highest weight 441 pounds, BMI 61.6. He comes in 425 pounds. Body mass index is 59.3. He is 246 pounds overweight. All surgical options for morbid obesity had been described using the [place] bariatric surgery collaborative comorbidity resolution including complication risk score. A second-generation bariatric consent form was described in detail including the possibility of protein malnutrition, leaks, gastric stricture, venous thrombosis, gastroesophageal reflux disease, need for further surgery for which he demonstrated understanding. Benefits and risks of the procedure were described at length. Informed consent was obtained. DESCRIPTION: The patient was brought into the operating room theater. Preoperatively he had received Lovenox subcutaneously for DVT prophylaxis. Additionally he had Peridex oral solution as an oral decontaminant. After general induction, the abdomen was prepped and draped in standard sterile fashion. An Ioban draping was placed along the abdomen. No martinez catheter was placed. A robotic da Remy Xi system was prepped and primed. At 15 cm from the xiphoid, proposed port sites were marked with indelible marker along the anterior axillary line bilaterally, mid axillary line bilaterally with each ports were marked 10 to 15 cm from each other. The asset protection assistant port was marked along the left lateral abdominal wall. The robotic stapler port was marked for the right midclavicular line. A 5 mm 0 degrees laparoscopic trocar entry was performed along the left upper quadrant. The abdomen was insufflated to 15 mmHg pressure he tolerated well. Diagnostic laparoscopy demonstrated no injury to bowel, viscera, or mesentery. The liver surface was remarkable for fatty liver disease. No injury had occurred to the small bowel or viscera. Along the hiatus no recurrent hiatal hernia was found. A 8 mm port was placed along the right upper abdominal wall after exchanging the 5 mm port. A separate 8 mm port was placed along the left lateral abdominal wall. Please note that the ports were placed at least 20 cm away from the target anatomy. Care was taken to check each robotic arms were safely away from collision with the bed or the patient. At the epigastrium, a medium sized Diana liver retractor was placed under direct visualization with the [employer] placed under the right shoulder of the patient. Next, 12-mm robot stapler port was placed along the right upper quadrant. The camera 8-mm port was maintained along the epigastrium. The patient was repositioned in reverse Trendelenburg position at 21-degrees after lowering the bed. The robot was docked along the left side of the patient. Using a grasper for arm 4, a veseel sealer for arm 3, including grasper for arm 1, the robotic system was docked and primed as described. Instruments were interchanged by the asset protection assistant for stapler loads. The camera was placed at 30-degrees down. I had sat at the console. The pylorus was identified and 6 cm proximally along the greater curvature of the stomach, the short gastrics were mobilized upwards to the angle of His using a vessel sealer. Hemostasis was excellent during this portion of the procedure. Next, the upper pole of the stomach was adherent to the left johanny, which was gently dissected free using atraumatic grasper. The nursing toolroom attendant placed a 40-Belarusian blunted tip bougie into the stomach. Robotic stapler loads 60 mm x 6 were used to create the sleeve. Initial firing was across the antrum of the stomach towards the angle of His. The staple line was completely hemostatic and linear without corkscrewing. Hemostasis was excellent. The space from the angularis incisura of the sleeve was approximately 4 cm. I then went to the head of the bed to perform the intraoperative esophagogastroduodenoscopy leak test. The upper pole of the stomach was bathed using normal saline solution. The scope was withdrawn with careful inspection along the staple line for which no leaks were found along the entire length. Additionally, the sleeve was completely hemostatic without any encroachment along the angularis incisura. Its topology was a soft "J". No stricture was encountered upon placement of the scope. The GI tract was desufflated. The patient tolerated this portion of the procedure well. The scope was completely withdrawn. The robot was undocked. I then rescrubbed into case, whereby the irrigation fluid was aspirated from the abdominal cavity. Tisseel fibrin sealant was placed along the staple length. Once dried the Diana liver retractor was removed. Attention was now brought to removal of the specimen. The distal end of the sleeve gastrectomy specimen was brought out through the 12 mm port at the left upper quadrant. The specimen was gently removed en total, corresponding to 29 cm x 8 cm sleeve gastrectomy specimen. No contamination had occurred during this process. All instruments and pneumoperitoneum including irrigation fluid was removed from the abdominal cavity. The 12 mm port site was irrigated with warm normal saline solution and diluted hydron peroxide. The 12-mm port site was reapproximated using 0 Vicryl and Navid-Maurilio of the left upper quadrant. The final incisions were closed using subcuticular interrupted suture of 4-0 Monocryl. Dermabond was applied to the skin once the skin had been cleansed. OptiFoam dressing was placed along the stomach extraction site. At the end of the procedure, needle, sponge, and instrument count was verified correct by the surgical supply assistant. The patient was taken to the postanesthesia care unit in stable condition. He had tolerated the procedure well. Intraoperative films and findings were reviewed with the patient's family.
== END 2024-11-03 14:29 | disposition home or self-care (01) ==
LOC: OR 09:51 → 4SSUR 13:34 → OR 11-03 14:29
PROVIDERS: ATTEND Surgery Plastic and Reconstructive Surgery
DX: E66.01 Morbid (severe) obesity due to excess calories (principal); K76.0 Fatty (change of) liver, not elsewhere classified; K21.9 Gastro-esophageal reflux disease without esophagitis; M16.0 Bilateral primary osteoarthritis of hip; M17.0 Bilateral primary osteoarthritis of knee; I11.9 Hypertensive heart disease without heart failure; E78.5 Hyperlipidemia, unspecified; F90.9 Attention-deficit hyperactivity disorder, unspecified type; G47.33 Obstructive sleep apnea (adult) (pediatric); Z01.810 Encounter for preprocedural cardiovascular examination; Z68.44 Body mass index [BMI] 60.0-69.9, adult; Z83.49 Family history of other endocrine, nutritional and metabolic diseases; Z83.3 Family history of diabetes mellitus; Z82.49 Family history of ischemic heart disease and other diseases of the circulatory system; Z79.1 Long term (current) use of non-steroidal anti-inflammatories (NSAID); Z79.899 Other long term (current) drug therapy
CPT/HCPCS: 43775; S2900; 64468; 80051; 82310; 82565; 83735; 84100; 84520; 85025; 88307

== ENCOUNTER → 2024-11-04 | Outpatient (CLI) | payer BC ==
[~2024-11-04] MED LIST changes: -LIDOCAINE 1% (10MG/ML) FOR IV START INTRADERMA PRN; -ONDANSETRON 4 MG/2 ML VIAL IVP PRN; +SCOPOLAMINE 1 MG/72 HR PATCH TRANSDERM STA
[2024-11-04 14:44] VITALS: BP 178/90; PULSE 60; RESP 16; TEMP 98; BMI 60.8
--- NOTE | 2024-11-04 15:03 | P.BASOAP ---
Subjective Principal diagnosis: He vomitied. Fluids are low. Has dark urine. No infection. He took of his scopolamine patch. needs 2 liter fluids Objective - Vital Signs Vital signs: Vital Signs Temp 98 F 11/04/24 14:41 Pulse 60 11/04/24 14:41 Resp 16 11/04/24 14:41 BP 178/90 11/04/24 14:41 Pulse Ox FiO2 Intake & Output 11/03/24 11/04/24 11/04/24 18:59 06:59 18:59 Weight 184.159 kg Assessment/Plan Plan: Date: 11/04/24 Initial Weight: 198.673 kg Initial BMI: 65.6 Current Weight: 184.159 kg Current BMI: 60.8 Type of Surgery: Vertical Sleeve Gastrectomy Total Volume in Band: Previous Volume: Volume Removed: Volume Added: Band Size:
== END ==
LOC: BARWHC3 13:52
PROVIDERS: ATTEND Surgery Plastic and Reconstructive Surgery
DX: E66.01 Morbid (severe) obesity due to excess calories (principal); Z68.44 Body mass index [BMI] 60.0-69.9, adult
CPT/HCPCS: 99211

== ENCOUNTER → 2024-11-05 | Outpatient (CLI) | payer BC ==
--- NOTE | 2024-11-05 15:44 | FL ---
SINGLE CONTRAST barium swallow, esophagram: DATE: 11/05/2024 CLINICAL HISTORY: 34-year-old male R13.12, oropharyngeal phase dysphagia, patient status post sleeve gastrectomy earlier in the week. Assess for leak. TECHNIQUE: Single contrast exam performed with 40 ml Isovue 370 contrast. Total fluoroscopy time 2 minutes 4 seconds. Total images: 20. Total DAP: 150 mGycm2. FINDINGS: The patient swallowed oral contrast without difficulty or delay. There is normal course and caliber o f the esophagus. After the initial small swallows, there is satisfactory passage of contrast from eso phagus into the stomach with string-like progression of contrast across the sleeve gastrectomy distal stomach. A larger swallow resulted in persistent pooling in the proximal stomach and back up into th e distal esophagus with recurrent episodes of gastroesophageal and intraesophageal reflux. We waited approximately 4 minutes before contrast passed into the distal stomach. There is no evidence of contr ast extravasation to suggest leak. No postsurgical free air seen. IMPRESSION: Status post sleeve gastrectomy with possible gastric spasm when the patient was instructed to take a larger swallow. There is pooling of contrast in the proximal stomach and distal esophagus with recurr ent episodes of gastroesophageal and intraesophageal reflux. This improved after a 4 minute wait. The initial small swallows showed satisfactory passage across the sleeve. Follow-up as clinically indica dunia. No evidence of leak. [facility], , 11/05/2024 3:42 PM
== END | disposition home or self-care (01) ==
LOC: RADFLMAIN 13:57
PROVIDERS: ATTEND Surgery Plastic and Reconstructive Surgery
DX: K21.9 Gastro-esophageal reflux disease without esophagitis (principal); Z98.84 Bariatric surgery status
CPT/HCPCS: 74220; Q9967

== ENCOUNTER → 2024-11-05 | Outpatient (CLI) | payer BC ==
[2024-11-05 11:33] VITALS: BP 143/73; PULSE 48; RESP 16; TEMP 98.3
[2024-11-05] MEDS: SODIUM CHLORIDE 0.9% 1,000 ML IV SCH (11:38)
== END ==
LOC: PROCWHC3 11:16
PROVIDERS: ATTEND Surgery Plastic and Reconstructive Surgery
DX: E86.0 Dehydration (principal)
CPT/HCPCS: 96360; 96361

== ENCOUNTER → 2024-11-09 | Outpatient (CLI) | payer BC ==
[2024-11-09 14:05] VITALS: BP 130/73; PULSE 55; TEMP 97.7; BMI 59.0
--- NOTE | 2024-11-10 07:35 | P.BASOAP ---
Subjective Progress Note Date: 11/10/24 Patient seen and evaluated. He is doing much better. He has lost 12 pounds in 1 week. No nausea and vomiting. Patient undergoing fluid boluses due to pre- existing dehydration. Total weight loss over 60+ pounds. Patient is happy with weight loss. No infection. Close outpatient follow-up with additional follow- up 1 month postop. All questions addressed. Objective - Vital Signs Vital signs: Vital Signs Temp 97.7 F 11/09/24 14:03 Pulse 55 L 11/09/24 14:03 Resp BP 130/73 11/09/24 14:03 Pulse Ox FiO2 Intake & Output 11/09/24 11/10/24 11/10/24 18:59 06:59 18:59 Weight 178.715 kg Assessment/Plan Plan: Date: 11/09/24 Initial Weight: 198.673 kg Initial BMI: 65.6 Current Weight: 178.715 kg Current BMI: 59.0 Type of Surgery: Total Volume in Band: Previous Volume: Volume Removed: Volume Added: Band Size:
== END ==
LOC: BARWHC3 12:46
PROVIDERS: ATTEND Surgery Plastic and Reconstructive Surgery
DX: E66.01 Morbid (severe) obesity due to excess calories (principal); Z68.43 Body mass index [BMI] 50.0-59.9, adult
CPT/HCPCS: 99211

== ENCOUNTER → 2024-11-09 | Outpatient (CLI) | payer BC ==
[~2024-11-09] MED LIST changes: -SCOPOLAMINE 1 MG/72 HR PATCH TRANSDERM STA; +SODIUM CHLORIDE 0.9% 250 ML in EMPTY BAG 1 BAG IV PRN; +SODIUM CHLORIDE 0.9% 500 ML 500 ML in EMPTY BAG 1 BAG IV PRN
[2024-11-09] MEDS: SODIUM CHLORIDE 0.9% 1,000 ML IV NR (11:37)
[2024-11-09 11:39] VITALS: BP 130/73; PULSE 55; RESP 16; TEMP 97.7
== END ==
LOC: PROCWHC3 10:45
PROVIDERS: ATTEND Surgery Plastic and Reconstructive Surgery
DX: E86.0 Dehydration (principal)
CPT/HCPCS: 96360; 96361